=== PATIENT | female | born 1960 | race Caucasian/White ===

== ENCOUNTER 2023-04-26 11:30 | Outpatient (RCR) | payer MEDICARE, OTHER, SELFPAY ==
[2023-04-26 11:59] VITALS: BP 119/83
[2023-04-26 12:07] VITALS: BP 116/69
[2023-04-26 12:23] VITALS: BP 97/59
[2023-04-26 14:18] VITALS: BP 105/59
== END 2023-05-12 23:59 | disposition home or self-care (01) ==
LOC: OID 11:30
PROVIDERS: ATTENDING PHYSICIAN Nurse Practitioner Adult Health
DX: C50.411 Malignant neoplasm of upper-outer quadrant of right female breast (principal); Z17.0 Estrogen receptor positive status [ER+]
CPT/HCPCS: 36415; 36430; 86850; 86900; 86901; 86920; P9016

== ENCOUNTER 2023-06-07 11:16 | Outpatient (RCR) | payer MEDICARE, OTHER, SELFPAY ==
[2023-06-07] MEDS: TYLENOL 650 MG PO (11:33)
[2023-06-07 11:39] VITALS: BP 103/55
[2023-06-07 11:49] VITALS: BP 103/55
[2023-06-07 11:58] VITALS: BP 91/42
[2023-06-07 13:41] VITALS: BP 98/52
== END 2023-06-10 23:59 | disposition home or self-care (01) ==
LOC: OID 11:16
PROVIDERS: ATTENDING PHYSICIAN Nurse Practitioner Adult Health
DX: C50.411 Malignant neoplasm of upper-outer quadrant of right female breast (principal)
CPT/HCPCS: 36430; 86850; 86900; 86901; 86920; P9016

== ENCOUNTER → 2023-06-21 15:51 | Outpatient (REF) | payer MEDICARE, OTHER, SELFPAY ==
[2023-06-21 19:03] LABS: % Basophils 0.4 % (0-2); % Eosinophils 3.7 % (0-6); % Immature Granulocytes 0.9 % (0-0.5); % Lymphocytes 5.8 % (20.5-51.1); % Monocytes 1.7 % (1.7-9.3); % Neutrophils 87.5 % (42.2-75.2); Absolute Basophils 0.1 10^3/uL (0-0.2); Absolute Eosinophils 0.5 10^3/uL (0-0.7); Absolute Immature Granulocytes 0.1 10^3/uL (0-0.05); Absolute Lymphocytes 0.8 10^3/uL (1.2-3.4); Absolute Monocytes 0.2 10^3/uL (0.1-0.6); Absolute Neutrophils 12.2 10^3/uL (1.4-6.5); Hematocrit 30.1 % (37.0-47.0); Mean Corp Hgb Conc. 33.2 g/dL (33.0-37.0); Mean Corpuscular Hgb 31.7 pg (27.0-31.0); Mean Corpuscular Volume 95.6 fL (81.0-99.0); Mean Platelet Volume 10.2 fL (7.4-10.4); Nucleated Red Blood Cells % 0 %; Platelet Count 170 10^3/uL (130-400); Red Blood Cell Count 3.15 10^6/uL (4.20-5.40); Red Cell Dist. Width 17.3 % (11.5-14.5); White Blood Cell Count 13.9 10^3/uL (4.8-10.8)
== END ==
LOC: OIDL 15:51
PROVIDERS: ATTENDING PHYSICIAN Internal Medicine Hematology & Oncology
DX: C50.411 Malignant neoplasm of upper-outer quadrant of right female breast (principal); C79.51 Secondary malignant neoplasm of bone; D63.0 Anemia in neoplastic disease; I26.99 Other pulmonary embolism without acute cor pulmonale
CPT/HCPCS: 85025

== ENCOUNTER → 2023-06-25 13:18 | Outpatient (REF) | payer MEDICARE, OTHER, SELFPAY ==
[2023-06-25 09:14] LABS: INR 1.21; PT 15.1 Sec (11.4-14.6)
[2023-06-25 09:15] LABS: ALT (SGPT) 20 U/L (0-35); AST (SGOT) 30 U/L (14-36); Albumin 3.8 g/dl (3.5-5.0); Alkaline Phosphatase 141 U/L (38-126); Blood Urea Nitrogen 23 mg/dl (7-17); Calcium 10.6 mg/dl (8.4-10.2); Carbon Dioxide 26 mmol/L (22-30); Chloride 102 mmol/L (98-107); Glucose 109 mg/dl (70-99); Potassium 3.4 mmol/L (3.5-5.1); Sodium 137 mmol/L (135-145); Total Bilirubin 0.4 mg/dl (0.2-1.3); Total Protein 6.7 g/dl (6.3-8.2); eGFR > 60.00
== END ==
LOC: OIDL 13:18
PROVIDERS: ATTENDING PHYSICIAN Internal Medicine Hematology & Oncology
DX: C50.411 Malignant neoplasm of upper-outer quadrant of right female breast (principal)
CPT/HCPCS: 80053; 85610

== ENCOUNTER 2023-06-28 16:21 | Outpatient (RCR) | payer MEDICARE, OTHER, SELFPAY ==
[2023-06-28 15:56] LABS: % Basophils 1.1 % (0-2); % Eosinophils 3.2 % (0-6); % Immature Granulocytes 4.7 % (0-0.5); % Monocytes 1.4 % (1.7-9.3); % Neutrophils 71.6 % (42.2-75.2); Absolute Basophils 0.1 10^3/uL (0-0.2); Absolute Eosinophils 0.2 10^3/uL (0-0.7); Absolute Immature Granulocytes 0.3 10^3/uL (0-0.05); Absolute Monocytes 0.1 10^3/uL (0.1-0.6); Hematocrit 28.4 % (37.0-47.0); Hemoglobin 9.4 g/dL (12.0-16.0); Mean Corp Hgb Conc. 33.1 g/dL (33.0-37.0); Mean Corpuscular Hgb 31.8 pg (27.0-31.0); Mean Corpuscular Volume 95.9 fL (81.0-99.0); Mean Platelet Volume 10.4 fL (7.4-10.4); Nucleated Red Blood Cells % 0 %; Platelet Count 271 10^3/uL (130-400); Red Blood Cell Count 2.96 10^6/uL (4.20-5.40); Red Cell Dist. Width 17.2 % (11.5-14.5); White Blood Cell Count 5.6 10^3/uL (4.8-10.8)
== END 2023-07-11 23:59 | disposition home or self-care (01) ==
LOC: OID 16:21
PROVIDERS: ATTENDING PHYSICIAN Internal Medicine Hematology & Oncology
DX: C50.411 Malignant neoplasm of upper-outer quadrant of right female breast (principal)
CPT/HCPCS: 85025

== ENCOUNTER 2023-08-02 07:38 | Outpatient (RCR) | payer MEDICARE, OTHER, SELFPAY ==
[2023-07-16 10:28] LABS: Iron 100 ug/dl (37-170)
[2023-07-16 10:38] LABS: Percent Saturation 31 % (20-50); Total Iron Binding Capacity 316 ug/dl (265-497)
[2023-07-17 13:22] LABS: CA 27-29 96.2 U/mL (<=39.0)
[2023-07-23 09:39] LABS: % Basophils 1.3 % (0-2); % Eosinophils 2.7 % (0-6); % Immature Granulocytes 1.6 % (0-0.5); % Lymphocytes 19.2 % (20.5-51.1); % Monocytes 8.7 % (1.7-9.3); % Neutrophils 66.5 % (42.2-75.2); Absolute Basophils 0.1 10^3/uL (0-0.2); Absolute Eosinophils 0.1 10^3/uL (0-0.7); Absolute Immature Granulocytes 0.1 10^3/uL (0-0.05); Absolute Lymphocytes 0.9 10^3/uL (1.2-3.4); Absolute Monocytes 0.4 10^3/uL (0.1-0.6); Hematocrit 27.5 % (37.0-47.0); Hemoglobin 8.8 g/dL (12.0-16.0); Mean Corpuscular Volume 96.8 fL (81.0-99.0); Mean Platelet Volume 10.6 fL (7.4-10.4); Nucleated Red Blood Cells % 0 %; Platelet Count 196 10^3/uL (130-400); Red Blood Cell Count 2.84 10^6/uL (4.20-5.40); Red Cell Dist. Width 17.1 % (11.5-14.5); White Blood Cell Count 4.5 10^3/uL (4.8-10.8)
[2023-07-23 09:48] LABS: PT 39.9 Sec (11.4-14.6)
[2023-07-26 17:19] LABS: INR 1.42; PT 17.2 Sec (11.4-14.6)
[2023-08-02 07:50] VITALS: BP 108/45
[2023-08-02] MEDS: TYLENOL 650 MG PO (08:12)
[2023-08-02 08:31] VITALS: BP 108/45
[2023-08-02 08:48] VITALS: BP 104/53
[2023-08-02 10:46] VITALS: BP 105/47
[2023-08-02 11:47] LABS: INR 2.07; PT 23.1 Sec (11.4-14.6)
[2023-08-05 11:08] LABS: % Basophils 0.3 % (0-2); % Eosinophils 1.6 % (0-6); % Lymphocytes 7.7 % (20.5-51.1); % Neutrophils 77.4 % (42.2-75.2); Absolute Basophils 0.1 10^3/uL (0-0.2); Absolute Eosinophils 0.5 10^3/uL (0-0.7); Absolute Immature Granulocytes 1.7 10^3/uL (0-0.05); Absolute Lymphocytes 2.2 10^3/uL (1.2-3.4); Absolute Neutrophils 22.4 10^3/uL (1.4-6.5); Hemoglobin 10.3 g/dL (12.0-16.0); Mean Corp Hgb Conc. 32.2 g/dL (33.0-37.0); Mean Corpuscular Hgb 31.6 pg (27.0-31.0); Mean Corpuscular Volume 98.2 fL (81.0-99.0); Mean Platelet Volume 11.8 fL (7.4-10.4); Platelet Count 154 10^3/uL (130-400); Red Blood Cell Count 3.26 10^6/uL (4.20-5.40); Red Cell Dist. Width 19.6 % (11.5-14.5)
[2023-08-05 11:45] LABS: ALT (SGPT) 19 U/L (0-35); AST (SGOT) 33 U/L (14-36); Albumin 3.9 g/dl (3.5-5.0); Alkaline Phosphatase 228 U/L (38-126); Blood Urea Nitrogen 13 mg/dl (7-17); Calcium 10.3 mg/dl (8.4-10.2); Carbon Dioxide 27 mmol/L (22-30); Chloride 104 mmol/L (98-107); Glucose 88 mg/dl (70-99); Potassium 4.1 mmol/L (3.5-5.1); Sodium 135 mmol/L (135-145); Total Bilirubin 0.3 mg/dl (0.2-1.3); Total Protein 6.8 g/dl (6.3-8.2); eGFR > 60.00
[2023-08-06 14:39] LABS: CA 27-29 84.3 U/mL (<=39.0)
== END 2023-08-10 23:59 | disposition home or self-care (01) ==
LOC: OID 07:38
PROVIDERS: ATTENDING PHYSICIAN Internal Medicine Hematology & Oncology
DX: C50.411 Malignant neoplasm of upper-outer quadrant of right female breast (principal)
CPT/HCPCS: 36415; 36430; 80053; 82728; 83540; 83550; 85025; 85610; 86300; 86850; 86900; 86901; 86920; P9016

== ENCOUNTER → 2023-08-23 14:15 | Outpatient (REF) | payer MEDICARE, OTHER, SELFPAY ==
[2023-08-23 15:18] LABS: % Basophils 0.1 % (0-2); % Eosinophils 1.4 % (0-6); % Immature Granulocytes 9.1 % (0-0.5); % Lymphocytes 6.7 % (20.5-51.1); % Monocytes 9.4 % (1.7-9.3); % Neutrophils 73.3 % (42.2-75.2); Absolute Eosinophils 0.4 10^3/uL (0-0.7); Absolute Immature Granulocytes 2.8 10^3/uL (0-0.05); Absolute Lymphocytes 2.1 10^3/uL (1.2-3.4); Absolute Monocytes 2.9 10^3/uL (0.1-0.6); Absolute Neutrophils 22.7 10^3/uL (1.4-6.5); Hematocrit 24.9 % (37.0-47.0); Hemoglobin 8.1 g/dL (12.0-16.0); Mean Corp Hgb Conc. 32.5 g/dL (33.0-37.0); Mean Corpuscular Hgb 31.8 pg (27.0-31.0); Mean Corpuscular Volume 97.6 fL (81.0-99.0); Mean Platelet Volume 11.2 fL (7.4-10.4); Nucleated Red Blood Cells % 0.4 %; Platelet Count 189 10^3/uL (130-400); Red Blood Cell Count 2.55 10^6/uL (4.20-5.40); Red Cell Dist. Width 19.6 % (11.5-14.5)
[2023-08-23 15:50] LABS: INR 1.34; PT 16.4 Sec (11.4-14.6)
== END ==
LOC: OIDL 14:15
PROVIDERS: ATTENDING PHYSICIAN Internal Medicine Hematology & Oncology
DX: C50.411 Malignant neoplasm of upper-outer quadrant of right female breast (principal); C79.51 Secondary malignant neoplasm of bone; D50.9 Iron deficiency anemia, unspecified
CPT/HCPCS: 85025; 85610

== ENCOUNTER 2023-08-29 13:41 | Emergency (ER) | payer MEDICARE, OTHER, SELFPAY ==
--- NOTE | 2023-08-29 15:01 | ED.GENMED ---
History of Present Illness
General
Chief Complaint: Musculo-Skeletal Complaint
Source: patient
Exam Limitations: none
Time Seen by Provider: 08/29/23 14:54
Travel History
Have you had any contact with someone who has COVID-19?: No
Do you have any symptoms of coronavirus? Fever > 100 degrees, chills, cough, shortness of breath, sore throat, loss of taste or smell, muscle aches, or headache?: No
History of Present Illness
History of Present Illness:
See MDM
Past History
Past History
ED Past Medical History: Other (cancer)
ED Past Surgical History: Other (bone biopsy)
Social History
Tobacco: Non-smoker
Personal:
Employment: Employed
Phy Exam
Physical Exam
Physical Exam:
See MDM
Course
Orders/Labs/Results
Orders:
Orders
08/29/23 13:59
CR Clavicle - Left Complete Urgent
Comment:
Reason For Exam: pain
08/29/23 15:01
HYDROmorphone [Dilaudid] 1 mg IM NOW STA
Vital Signs
Initial and Last Documented VS:
Initial Vital Signs
Temp Pulse Resp Pulse Ox
97.9 F 98 16 97
08/29/23 13:54 08/29/23 13:54 08/29/23 13:54 08/29/23 13:54
Last Documented Vital Signs
Temp Pulse Resp Pulse Ox
97.9 F 98 16 97
08/29/23 13:54 08/29/23 13:54 08/29/23 13:54 08/29/23 13:54
MDM/Problems Addressed
Differential Diagnosis Includes:
HPI and MDM Narrative:
63-year-old female presenting with left clavicle pain. Patient felt a pop yesterday while she was doing the laundry. She does have a history of metastatic breast cancer to the bone. She has been taking Vicodin with minimal relief
X-ray consistent with mid clavicle fracture. Given the history and the x-ray findings, we discussed pathologic fracture. Will place in sling and give dose of Dilaudid
Physical exam
General: Well appearing and non-toxic
HEENT: protecting airway
Neck: appears supple
CV: No evidence of cyanosis
Resp: No accessory muscle use
Abd: Non-distended
Extremities: Tenderness and swelling to left mid clavicle. Distal extremity neurovascular intact
Neuro: alert
Psych: Normal affect
Skin: Intact
Problems Addressed including Acute and Chronic Conditions affecting care:
1. Clavicle fracture
Acuity: acute
Prognosis: stable
Details: Will give dose of IM Dilaudid and placed in sling
Updates
After IM Dilaudid, patient feeling better.
Differential Diagnosis (but not limited to): Shoulder strain, clavicle fracture, pneumothorax
Testing considered: Chest x-ray
Drug therapy (if applicable): OTC meds, please see d/c instruction regarding Rx drugs
Amount and/or Complexity of Data Reviewed
Clinical info obtained from: Patient
External data reviewed: N/A
Labs I independently reviewed (but not limited to): N/A
Radiology: x-ray independently reviewed: Left clavicle fracture
Pulse Ox: not hypoxic
EKG independently reviewed: N/A
Rouge Presser: N/A
Critical Care: N/A
Risk of Complication:
Social Determinants of health: Good social support
Discussed with other providers: N/A
Escalation of Care includes Admit/Obs: After being observed in the Emergency Department, pt stable for discharge.
Occasional wrong word or 'sound a like' substitutions may have occurred due to the inherent limitations of voice recognition software. Read the chart carefully and recognize, using context, where substitutions have occurred.
*Critical Care Note
Total Time (30-74mins, 75-104mins- exclusive of procedures): Not Applicable
ED Attending Note
-
Portions of this chart may have been created with voice recognition software.� Occasional wrong word or��sound alike� substitutions may have occurred due to the inherent limitations of voice recognition software.
Discharge Plan
Departure
Patient Disposition: Home (Routine Discharge)
Date of Disposition: 08/29/23
Time of Disposition: 16:12
Patient with high blood pressure during this ER visit?: No
Discharge Problem:
Fracture, clavicle closed, shaft
Instructions: Clavicle fracture
Prescriptions:
New
oxycodone 10 mg tablet
10 mg PO Q8H PRN (Reason: Pain) Qty: 14 0RF
No Action
albuterol sulfate 1 PUFF HFA aerosol inhaler
1 puff inhalation R Q4HPRN PRN (Reason: wheeze)
acetaminophen 500 mg Tablet
500 mg PO Q6H PRN (Reason: pain)
ondansetron HCl [Zofran] 8 mg Tablet
8 mg PO Q8H PRN (Reason: nausea)
diphenoxylate-atropine [Lomotil] 2.5-0.025 mg Tablet
1 tab PO DAILY PRN (Reason: diarrhea)
prochlorperazine maleate [Compazine] 10 mg Tablet
10 mg PO Q6H PRN (Reason: nausea)
Coumadin
5 mg PO DAILY
Rx Instructions:
dose varies
Referrals:
Rossy Gamble PA [Family Provider] -
Activity Restrictions/Additional Instructions:
Please return for any worsening symptoms.
You may return at any time if you have further concerns.
Please follow up with your doctor at the first available appointment, preferably this week.
Please make an appointment with the orthopedist.
Thank you for choosing [facility].
Interventions
Interventions:
*Risk Screen - Suicide Last Done: 08/29/23 13:54
*General Assessment Last Done: 08/29/23 13:54
*Neglect/Abuse Screening Last Done: 08/29/23 13:54
ED- Fall Risk Assessment Last Done: 08/29/23 15:17
*ED COVID-19 Vaccine History Last Done: 08/29/23 15:17
ED-Musculoskeletal Assessment Last Done: 08/29/23 15:17
Discharge Date and Time
Print Language: ALBANIAN
[2023-08-29] MEDS: DILAUDID 1 MG IM (15:16)
[2023-08-29 16:14] VITALS: BP 118/74
== END 2023-08-29 16:15 | disposition home or self-care (01) ==
LOC: EMR 13:41
PROVIDERS: EMERGENCY PHYSICIAN Student in an Organized Health Care Education/Training Program; FAMILY PHYSICIAN Family Medicine
DX: S42.022A Displaced fracture of shaft of left clavicle, initial encounter for closed fracture (principal); X58.XXXA Exposure to other specified factors, initial encounter
CPT/HCPCS: 99283; 96372; 73000

== ENCOUNTER 2023-09-24 10:57 | Emergency (ER) | payer MEDICARE, OTHER, SELFPAY ==
[2023-09-24 11:02] VITALS: BP 132/72
--- NOTE | 2023-09-24 14:33 | ED.GENMED ---
History of Present Illness
General
Chief Complaint: Back Pain
Source: patient and family
Exam Limitations: none
Time Seen by Provider: 09/24/23 12:24
Nursing documentation reviewed up to this point in time: agreed with
Travel History
Have you had any contact with someone who has COVID-19?: No
Do you have any symptoms of coronavirus? Fever > 100 degrees, chills, cough, shortness of breath, sore throat, loss of taste or smell, muscle aches, or headache?: No
History of Present Illness
History of Present Illness:
63-year-old female with past medical history of asthma previous PE presenting to the emergency department today with concerns of hip and low back discomfort over the past week. Denies additional symptoms associated with does have history of bone
lesions from bone cancer. She is concerned that could be a pathologic fracture but otherwise has been able to ambulate.
Past History
Past History
ED Past Medical History: Other (cancer)
ED Past Surgical History: Other (bone biopsy)
Social History
Tobacco: Non-smoker
Personal:
Employment: Employed
Review of Systems
Review of Systems
Allergies reviewed?: Yes
All Other Systems: ROS reviewed and negative except as documented in HPI and ROS
Phy Exam
Physical Exam
Physical Exam:
GENERAL: Alert , in no apparent distress
EYE: pupils equal and reactive
NECK: Supple, no significant adenopathy.
ENT: o/p clr, mmm.
CARDIAC: Regular rate and rhythm .
LUNGS: Clear breath sounds bilaterally, no acute respiratory distress, no wheezes/rales/rhonchi
ABDOMEN: Soft, without focal tenderness, no r/g, no cvat
NEUROLOGICAL: Alert and oriented, no focal neuro deficits
SKIN: Warm and dry, skin intact.
MUSCULOSKELETAL: No edema, well perfused. No specific bony tenderness good range of motion and strength of the hip and knees bilaterally
PSYCH: Normal and appropriate interaction.
Course
Orders/Labs/Results
Orders:
Orders
09/24/23 12:20
CR Hip - LT w/wo Pel 2-3 Vw* Urgent
Comment:
Reason For Exam: pain
Include a pelvis x-ray?: Yes
CR Lumbar Spine 2 Or 3 Views Urgent
Comment:
Reason For Exam: pain
Vital Signs
Initial and Last Documented VS:
Initial Vital Signs
Temp Pulse Resp BP Pulse Ox
98.2 F 92 18 132/72 96
09/24/23 11:02 09/24/23 11:02 09/24/23 11:02 09/24/23 11:02 09/24/23 11:02
Last Documented Vital Signs
Temp Pulse Resp BP Pulse Ox
98.2 F 92 18 132/72 96
09/24/23 11:02 09/24/23 11:02 09/24/23 11:02 09/24/23 11:02 09/24/23 11:02
MDM/Problems Addressed
MDM/Problems Addressed:
63-year-old female presenting to the emergency department today with concerns of hip and low back pain over the past few days. Does have a history of bone cancer. Here x-ray performed without signs of pathologic fracture. Patient does have
significant bone lesions that are chronic. She is able to ambulate making occult fracture unlikely stable for outpatient management. Return precautions given.
*Critical Care Note
Total Time (30-74mins, 75-104mins- exclusive of procedures): Not Applicable
ED Attending Note
-
Portions of this chart may have been created with voice recognition software.� Occasional wrong word or��sound alike� substitutions may have occurred due to the inherent limitations of voice recognition software.
Discharge Plan
Departure
Patient Disposition: Home (Routine Discharge)
Date of Disposition: 09/24/23
Time of Disposition: 14:34
Patient with high blood pressure during this ER visit?: No
Condition: Good
Covid-19: Not Applicable
Discharge Problem:
Bone pain
Instructions: Low Back Pain (DC)
Prescriptions:
No Action
albuterol sulfate 1 PUFF HFA aerosol inhaler
1 puff inhalation R Q4HPRN PRN (Reason: wheeze)
acetaminophen 500 mg Tablet
500 mg PO Q6H PRN (Reason: pain)
ondansetron HCl [Zofran] 8 mg Tablet
8 mg PO Q8H PRN (Reason: nausea)
diphenoxylate-atropine [Lomotil] 2.5-0.025 mg Tablet
1 tab PO DAILY PRN (Reason: diarrhea)
prochlorperazine maleate [Compazine] 10 mg Tablet
10 mg PO Q6H PRN (Reason: nausea)
Coumadin
5 mg PO DAILY
Rx Instructions:
dose varies
oxycodone 10 mg tablet
10 mg PO Q8H PRN (Reason: Pain) Qty: 14 0RF
Referrals:
Rossy Gamble PA [Family Provider] -
Activity Restrictions/Additional Instructions:
You came to the emergency department today with concerns of hip and back pain. Here you had x-rays without emergent findings or fracture. Please help closely with your outpatient doctors. Return to the emergency department for any worsening, new
or concerning symptoms.
Interventions
Interventions:
ED- Fall Risk Assessment Last Done: 09/24/23 12:24
*ED COVID-19 Vaccine History Last Done: 09/24/23 11:02
ED-Musculoskeletal Assessment Last Done: 09/24/23 12:23
Discharge Date and Time
Print Language: LITHU[place]IAN
== END 2023-09-24 14:46 | disposition home or self-care (01) ==
LOC: EMR 10:57
PROVIDERS: EMERGENCY PHYSICIAN Emergency Medicine; FAMILY PHYSICIAN Family Medicine
DX: M89.8X9 Other specified disorders of bone, unspecified site (principal); Z86.711 Personal history of pulmonary embolism; J45.909 Unspecified asthma, uncomplicated
CPT/HCPCS: 99283; 72100; 73502

== ENCOUNTER 2023-10-01 08:27 | Outpatient (RCR) | payer MEDICARE, OTHER, SELFPAY ==
[2023-09-16 09:09] LABS: % Basophils 0.4 % (0-2); % Eosinophils 2.6 % (0-6); % Immature Granulocytes 0.2 % (0-0.5); % Monocytes 7.3 % (1.7-9.3); % Neutrophils 77.5 % (42.2-75.2); Absolute Basophils 0.1 10^3/uL (0-0.2); Absolute Eosinophils 0.3 10^3/uL (0-0.7); Absolute Lymphocytes 1.5 10^3/uL (1.2-3.4); Absolute Monocytes 0.9 10^3/uL (0.1-0.6); Absolute Neutrophils 9.7 10^3/uL (1.4-6.5); Hematocrit 27.3 % (37.0-47.0); Hemoglobin 8.8 g/dL (12.0-16.0); Mean Corp Hgb Conc. 32.2 g/dL (33.0-37.0); Mean Corpuscular Volume 96.1 fL (81.0-99.0); Mean Platelet Volume 9.4 fL (7.4-10.4); Platelet Count 268 10^3/uL (130-400); Red Blood Cell Count 2.84 10^6/uL (4.20-5.40); Red Cell Dist. Width 17.7 % (11.5-14.5); White Blood Cell Count 12.5 10^3/uL (4.8-10.8)
[2023-09-16 10:10] LABS: INR 1.78; PT 20.8 Sec (11.4-14.6)
[2023-09-16 10:12] LABS: ALT (SGPT) 19 U/L (0-35); AST (SGOT) 42 U/L (14-36); Albumin 3.8 g/dl (3.5-5.0); Alkaline Phosphatase 166 U/L (38-126); Blood Urea Nitrogen 23 mg/dl (7-17); Calcium 11.4 mg/dl (8.4-10.2); Carbon Dioxide 26 mmol/L (22-30); Chloride 105 mmol/L (98-107); Glucose 84 mg/dl (70-99); Potassium 3.5 mmol/L (3.5-5.1); Sodium 140 mmol/L (135-145); Total Bilirubin 0.4 mg/dl (0.2-1.3); Total Protein 6.7 g/dl (6.3-8.2); eGFR > 60.00
[2023-10-01] VITALS (7 sets, daily range): BP systolic 93–110; BP diastolic 51–60
[2023-10-01 10:01] LABS: Iron 26 ug/dl (37-170)
[2023-10-01 10:10] LABS: Percent Saturation 12 % (20-50); Total Iron Binding Capacity 211 ug/dl (265-497)
[2023-10-07 14:11] LABS: % Basophils 0.5 % (0-2); % Eosinophils 4.5 % (0-6); % Immature Granulocytes 0.2 % (0-0.5); % Lymphocytes 25.2 % (20.5-51.1); % Monocytes 9.4 % (1.7-9.3); % Neutrophils 60.2 % (42.2-75.2); Absolute Eosinophils 0.3 10^3/uL (0-0.7); Absolute Lymphocytes 1.5 10^3/uL (1.2-3.4); Absolute Monocytes 0.6 10^3/uL (0.1-0.6); Absolute Neutrophils 3.5 10^3/uL (1.4-6.5); Hematocrit 29.2 % (37.0-47.0); Hemoglobin 9.2 g/dL (12.0-16.0); Mean Corp Hgb Conc. 31.5 g/dL (33.0-37.0); Mean Corpuscular Volume 92.1 fL (81.0-99.0); Mean Platelet Volume 9.5 fL (7.4-10.4); Platelet Count 392 10^3/uL (130-400); Red Blood Cell Count 3.17 10^6/uL (4.20-5.40); Red Cell Dist. Width 16.7 % (11.5-14.5); White Blood Cell Count 5.8 10^3/uL (4.8-10.8)
[2023-10-07 15:18] LABS: ALT (SGPT) 23 U/L (0-35); AST (SGOT) 33 U/L (14-36); Albumin 3.3 g/dl (3.5-5.0); Alkaline Phosphatase 184 U/L (38-126); Blood Urea Nitrogen 15 mg/dl (7-17); Calcium 10.4 mg/dl (8.4-10.2); Carbon Dioxide 24 mmol/L (22-30); Chloride 106 mmol/L (98-107); Glucose 98 mg/dl (70-99); Potassium 3.6 mmol/L (3.5-5.1); Sodium 139 mmol/L (135-145); Total Bilirubin 0.2 mg/dl (0.2-1.3); Total Protein 6.1 g/dl (6.3-8.2); eGFR > 60.00
== END 2023-10-10 23:59 | disposition home or self-care (01) ==
LOC: OID 08:27
PROVIDERS: ATTENDING PHYSICIAN Internal Medicine Hematology & Oncology
DX: C50.411 Malignant neoplasm of upper-outer quadrant of right female breast (principal); D63.0 Anemia in neoplastic disease; Z17.0 Estrogen receptor positive status [ER+]
CPT/HCPCS: 36415; 36430; 80053; 82728; 83540; 83550; 85025; 85610; 86850; 86900; 86901; 86920; P9016

== ENCOUNTER → 2023-10-18 08:21 | Outpatient (REF) | payer MEDICARE, OTHER, SELFPAY | LOC: RCS 08:21 | PROVIDERS: ATTENDING PHYSICIAN Physician Assistant; FAMILY PHYSICIAN Family Medicine | DX: R06.09 Other forms of dyspnea (principal); I34.0 Nonrheumatic mitral (valve) insufficiency; Z95.818 Presence of other cardiac implants and grafts | CPT/HCPCS: 93306; 93356 ==

== ENCOUNTER 2023-11-12 16:04 | Outpatient (RCR) | payer MEDICARE, OTHER, SELFPAY ==
[2023-11-12 11:45] LABS: INR 2.87
== END 2023-12-11 23:59 | disposition home or self-care (01) ==
LOC: OID 16:04
PROVIDERS: ATTENDING PHYSICIAN Internal Medicine Hematology & Oncology
DX: C50.411 Malignant neoplasm of upper-outer quadrant of right female breast (principal); D63.0 Anemia in neoplastic disease; Z17.0 Estrogen receptor positive status [ER+]
CPT/HCPCS: 85610

== ENCOUNTER → 2023-11-26 09:12 | Outpatient (REF) | payer MEDICARE, OTHER, SELFPAY ==
[2023-11-26 10:30] LABS: INR 4.09; PT 39.7 Sec (11.4-14.6)
== END ==
LOC: REG 09:12
PROVIDERS: ATTENDING PHYSICIAN Internal Medicine Hematology & Oncology; FAMILY PHYSICIAN Family Medicine
DX: C50.411 Malignant neoplasm of upper-outer quadrant of right female breast (principal); C79.51 Secondary malignant neoplasm of bone; D50.9 Iron deficiency anemia, unspecified; D63.0 Anemia in neoplastic disease; I26.99 Other pulmonary embolism without acute cor pulmonale; E87.6 Hypokalemia; M54.50 Low back pain, unspecified; S42.025 Nondisplaced fracture of shaft of left clavicle; M84.412S Pathological fracture, left shoulder, sequela; E83.52 Hypercalcemia
CPT/HCPCS: 36415; 85610

== ENCOUNTER → 2023-12-10 13:14 | Outpatient (REF) | payer MEDICARE, OTHER, SELFPAY ==
[2023-12-10 13:50] LABS: INR 2.32; PT 25.3 Sec (11.4-14.6)
== END ==
LOC: OIDL 13:14
PROVIDERS: ATTENDING PHYSICIAN Internal Medicine Hematology & Oncology
DX: C50.411 Malignant neoplasm of upper-outer quadrant of right female breast (principal); C79.51 Secondary malignant neoplasm of bone; D50.9 Iron deficiency anemia, unspecified; D63.0 Anemia in neoplastic disease
CPT/HCPCS: 85610

== ENCOUNTER → 2023-12-17 15:56 | Outpatient (REF) | payer MEDICARE, OTHER, SELFPAY ==
[2023-12-17 09:35] LABS: % Eosinophils 13.5 % (0-6); % Immature Granulocytes 0.8 % (0-0.5); % Lymphocytes 17.9 % (20.5-51.1); % Monocytes 7.9 % (1.7-9.3); % Neutrophils 57.9 % (42.2-75.2); Absolute Basophils 0.1 10^3/uL (0-0.2); Absolute Eosinophils 0.3 10^3/uL (0-0.7); Absolute Lymphocytes 0.5 10^3/uL (1.2-3.4); Absolute Monocytes 0.2 10^3/uL (0.1-0.6); Absolute Neutrophils 1.5 10^3/uL (1.4-6.5); Hematocrit 30.7 % (37.0-47.0); Hemoglobin 10.2 g/dL (12.0-16.0); Mean Corp Hgb Conc. 33.2 g/dL (33.0-37.0); Mean Corpuscular Hgb 30.2 pg (27.0-31.0); Mean Corpuscular Volume 90.8 fL (81.0-99.0); Mean Platelet Volume 10.4 fL (7.4-10.4); Nucleated Red Blood Cells % 0 %; Platelet Count 224 10^3/uL (130-400); Red Blood Cell Count 3.38 10^6/uL (4.20-5.40); Red Cell Dist. Width 18.1 % (11.5-14.5); White Blood Cell Count 2.5 10^3/uL (4.8-10.8)
[2023-12-17 09:46] LABS: PT 26.9 Sec (11.4-14.6)
== END ==
LOC: OIDL 15:56
PROVIDERS: ATTENDING PHYSICIAN Internal Medicine Hematology & Oncology
DX: C50.411 Malignant neoplasm of upper-outer quadrant of right female breast (principal); M85.80 Other specified disorders of bone density and structure, unspecified site; K64.8 Other hemorrhoids
CPT/HCPCS: 85025; 85610

== ENCOUNTER → 2024-01-07 11:05 | Outpatient (REF) | payer MEDICARE, OTHER, SELFPAY ==
[2024-01-07 12:36] LABS: INR 1.17; PT 14.8 Sec (11.4-14.6)
[2024-01-07 12:40] LABS: ALT (SGPT) 21 U/L (0-35); AST (SGOT) 35 U/L (14-36); Albumin 3.6 g/dl (3.5-5.0); Alkaline Phosphatase 114 U/L (38-126); Blood Urea Nitrogen 17 mg/dl (7-17); Calcium 9.6 mg/dl (8.4-10.2); Carbon Dioxide 20 mmol/L (22-30); Chloride 106 mmol/L (98-107); Glucose 138 mg/dl (70-99); Potassium 3.7 mmol/L (3.5-5.1); Sodium 139 mmol/L (135-145); Total Bilirubin 0.3 mg/dl (0.2-1.3); eGFR > 60.00
== END ==
LOC: OIDL 11:05
PROVIDERS: ATTENDING PHYSICIAN Internal Medicine Hematology & Oncology
DX: C50.411 Malignant neoplasm of upper-outer quadrant of right female breast (principal); D50.9 Iron deficiency anemia, unspecified
CPT/HCPCS: 80053; 85610

== ENCOUNTER → 2024-02-25 14:50 | Outpatient (REF) | payer MEDICARE, OTHER, SELFPAY ==
[2024-02-25 15:43] LABS: INR 3.08; PT 31.6 Sec (11.4-14.6)
== END ==
LOC: REG 14:50
PROVIDERS: ATTENDING PHYSICIAN Internal Medicine Hematology & Oncology; FAMILY PHYSICIAN Family Medicine
DX: C50.411 Malignant neoplasm of upper-outer quadrant of right female breast (principal); C79.51 Secondary malignant neoplasm of bone; D50.9 Iron deficiency anemia, unspecified; D63.0 Anemia in neoplastic disease; I26.99 Other pulmonary embolism without acute cor pulmonale; E87.6 Hypokalemia; M54.50 Low back pain, unspecified; S42.025 Nondisplaced fracture of shaft of left clavicle; M84.412S Pathological fracture, left shoulder, sequela; E83.52 Hypercalcemia
CPT/HCPCS: 36415; 85610

== ENCOUNTER 2024-03-11 05:04 | Inpatient (IN) | payer MEDICARE, OTHER, SELFPAY ==
[2024-03-10 22:50] VITALS: BP 124/76
[2024-03-10 23:26] VITALS: BP 120/59
[2024-03-10 23:32] VITALS: BMI 22.0
[2024-03-11] VITALS: BP 123/70
--- NOTE | 2024-03-11 00:21 | ED.GENMED ---
History of Present Illness
General
Chief Complaint: Headache
Source: patient
Time Seen by Provider: 03/10/24 23:30
History of Present Illness
History of Present Illness:
63-year-old female with unfortunate history of metastatic breast cancer to the bone who presents with pain in her neck on the right side up into the base of her skull. She states start about 8:30 PM. She states it hurts to. She denies any trauma.
She did have chemo earlier tonight. Patient states that she has had pathologic fractures elsewhere in the past. No fall
Past History
Past History
ED Past Medical History: Asthma and Other (Breast cancer with metastasis to bone marrow, PE)
ED Past Surgical History: Other (bone biopsy)
Social History
Tobacco: Non-smoker
Personal:
Employment: Employed
Phy Exam
Physical Exam
Physical Exam:
CONSTITUTIONAL Vital signs reviewed, Patient alert and oriented to person, place and time. Well-appearing
HEAD atraumatic, normocephalic.
EYES eyelids normal to inspection, Extraocular muscles intact, Conjunctiva normal, Sclera normal.
NECK Trachea midline, no jugular venous distention. Limited range of motion due to pain. Moderate tenderness along the right paraspinal region of the mid cervical spine. Some tenderness to the base of the occiput mild tenderness to the right
trapezius.
RESP no respiratory distress
BACK No obvious deformities
UPPER EXTREMITY Gross Range of motion normal, gross motor strength normal
LOWER EXTREMITY Gross range of motion normal, Gross motor strength normal
NEURO Speech normal, No focal motor deficits include, [place] coma scale 15, Memory normal, Cranial Nerves intact to screening exam.
SKIN Skin warm, dry, and normal in color.
PSYCHIATRIC Patient oriented to person place and time, Normal affect.
Course
Orders/Labs/Results
Orders:
Orders
03/10/24 23:36
Morphine Sulfate 4 mg IV NOW STA
03/11/24 00:02
CT Cervical Spine W/o Iv Contr Urgent
Reason For Exam: neck pain, metastatic breast ca
CT Head W/o Iv Contrast Urgent
Reason For Exam: [place], neck pain, metastatic breast Ca
03/11/24 02:21
Complete Blood Count/With Diff Urgent
Comprehensive Metabolic Panel Urgent
03/11/24 02:28
HYDROmorphone [Dilaudid] 1 mg IV NOW STA
03/11/24 02:30
Heparin Pf [Heparin Lock Flush] 500 unit .ROUTE .STK-MED ONE
Vital Signs
Initial and Last Documented VS:
Initial Vital Signs
Temp Pulse Resp BP Pulse Ox
98.6 F 88 20 124/76 100
03/10/24 22:50 03/10/24 22:50 03/10/24 22:50 03/10/24 22:50 03/10/24 22:50
Last Documented Vital Signs
Temp Pulse Resp BP Pulse Ox
98.6 F 81 18 135/77 100
03/10/24 22:50 03/10/24 23:48 03/11/24 00:00 03/11/24 01:01 03/11/24 01:15
MDM/Problems Addressed
Differential Diagnosis Includes:
Metastatic disease, osteoarthritis, cervical muscle strain
MDM/Problems Addressed:
Neck pain, headache, metastatic breast cancer
*Radiology
Radiology exam reviewed: preliminary read by ED provider (Lytic lesion noted to C2 and base of skull)
*Pulse Oximetry
Patient hypoxic: no
*Critical Care Note
Total Time (30-74mins, 75-104mins- exclusive of procedures): Not Applicable
Data Reviewed
Source: patient and family (Patient's son)
Patient Management
Discussion with other providers: Machine Stacker (Case discussed with Dr. Lackey from oncology)
Escalation/DeEscalation of care consider admission/obs:
Patient with unfortunate metastatic breast cancer with lesions at C2 and the base of the skull. C-collar placed for support and protection. Case discussed with oncology recommends admit for pain control and MRI. Likely at some point to need
radiation. No neurologic symptom
ED Attending Note
-
Portions of this chart may have been created with voice recognition software.� Occasional wrong word or��sound alike� substitutions may have occurred due to the inherent limitations of voice recognition software.
Discharge Plan
Departure
Patient Disposition: Admit
Date of Disposition: 03/11/24
Time of Disposition: 02:30
Admit to: Med/Surg
Presentation/result/management discussed w/ accepting MD/DO: Hospitalist
Discharge Problem:
Metastatic breast cancer, Metastasis to cervical spine
Prescriptions:
No Action
albuterol sulfate 1 PUFF HFA aerosol inhaler
1 puff inhalation R Q4HPRN PRN (Reason: wheeze)
ondansetron HCl [Zofran] 8 mg Tablet
8 mg PO Q8H PRN (Reason: nausea)
diphenoxylate-atropine [Lomotil] 2.5-0.025 mg Tablet
1 tab PO DAILY PRN (Reason: diarrhea)
prochlorperazine maleate [Compazine] 10 mg Tablet
10 mg PO Q6H PRN (Reason: nausea)
Coumadin
5 mg PO DAILY
Rx Instructions:
dose varies
gabapentin 100 mg Capsule
300 mg PO HS
oxycodone-acetaminophen
325 PO DAILY PRN (Reason: pain)
Referrals:
Rossy Gamble PA [Family Provider] -
Interventions
Interventions:
*Risk Screen - Suicide Last Done: 03/10/24 22:50
*General Assessment Last Done: 03/10/24 22:50
*Neglect/Abuse Screening Last Done: 03/10/24 22:50
ED- Fall Risk Assessment Last Done: 03/10/24 22:50
*ED COVID-19 Vaccine History Last Done: 03/10/24 22:50
ED-Musculoskeletal Assessment Last Done: 03/10/24 23:35
ED- Neurological Assessment Last Done: 03/10/24 23:35
Discharge Date and Time
Print Language: [place]
[2024-03-11] MEDS: MORPHINE SULFATE 4 MG IV (00:54)
[2024-03-11 01:01] VITALS: BP 135/77
[2024-03-11] MEDS: DILAUDID 1 MG IV (02:32)
[2024-03-11 02:56] LABS: % Basophils 0.2 % (0-2); % Immature Granulocytes 0.4 % (0-0.5); % Lymphocytes 15.7 % (20.5-51.1); % Monocytes 1.3 % (1.7-9.3); % Neutrophils 82.4 % (42.2-75.2); Absolute Lymphocytes 0.7 10^3/uL (1.2-3.4); Absolute Monocytes 0.1 10^3/uL (0.1-0.6); Absolute Neutrophils 3.8 10^3/uL (1.4-6.5); Hemoglobin 8.1 g/dL (12.0-16.0); Mean Corp Hgb Conc. 32.4 g/dL (33.0-37.0); Mean Corpuscular Hgb 28.7 pg (27.0-31.0); Mean Corpuscular Volume 88.7 fL (81.0-99.0); Mean Platelet Volume 10.1 fL (7.4-10.4); Nucleated Red Blood Cells % 0 %; Platelet Count 320 10^3/uL (130-400); Red Blood Cell Count 2.82 10^6/uL (4.20-5.40); Red Cell Dist. Width 16.1 % (11.5-14.5); White Blood Cell Count 4.6 10^3/uL (4.8-10.8)
[2024-03-11 03:53] LABS: ALT (SGPT) 19 U/L (0-35); AST (SGOT) 44 U/L (14-36); Albumin 3.6 g/dl (3.5-5.0); Alkaline Phosphatase 135 U/L (38-126); Blood Urea Nitrogen 17 mg/dl (7-17); Calcium 9.2 mg/dl (8.4-10.2); Carbon Dioxide 24 mmol/L (22-30); Chloride 105 mmol/L (98-107); Estimated Creatinine Clearance 81 ml/min; Glucose 115 mg/dl (70-99); Potassium 3.9 mmol/L (3.5-5.1); Sodium 139 mmol/L (135-145); Total Bilirubin 0.5 mg/dl (0.2-1.3); Total Protein 6.3 g/dl (6.3-8.2); eGFR > 60.00
--- NOTE | 2024-03-11 04:52 | HPS.HSE ---
Family Physician
-
Family Physician: Rossy Gamble
Chief Complaint
-
Headache
History of Present Illness
Patient is a 63y F with PMH significant for breast cancer with metastases to bone who presents to ED complaining of posterior headache and neck pain for about one week. Patient is currently on chemotherapy regimen for breast cancer with known
diffuse bony mets. She had her usual chemo session earlier today. Patient states that she developed new pain rather suddenly about one week ago in the upper neck / posterior skull. Patient states that symptoms have been persistent since that
time. This evening she presented to the ED for further evaluation.
Patient states that the pain radiates toward her R ear. No pain in the arms. No weakness or ataxia.
Medical History
Past Medical History
Past Medical History: Reports Other
Additional Past Medical History:
Breast Cancer with Bony Metastases
Anemia of Chronic Disease
Mitral Valve Disease
History of Pulmonary Embolism
Pathologic Left Clavicle Fracture
Past Surgical History: Reports Other
Additional Past Surgical History:
Right Lumpectomy
R ACW Port Placement
MitraClip Placement x 2
D&C
T&A
Social History
Tobacco: Non-smoker
Alcohol: None
Drug: None
Personal:
Family History
Family History: Not pertinent
Allergies / Home Medications
Allergies reflects when Allergies were last updated in [employer].
Home Medications with original date entered in [employer]
Allergy/Medication List:
Allergies
Allergy/AdvReac Type Severity Reaction Status Date / Time
No Known Allergies Allergy Verified 03/10/24 22:50
Home Medications
albuterol sulfate 90 mcg/actuation aerosol inhaler 1 puff inhalation R Q4HPRN PRN wheeze 10/26/18
diphenoxylate-atropine 2.5 mg-0.025 mg tablet (Lomotil) 1 tab PO DAILY PRN diarrhea 03/16/23
ondansetron HCl 8 mg tablet 8 mg PO Q8H PRN nausea 03/16/23
prochlorperazine maleate 10 mg tablet (Compazine) 10 mg PO Q6H PRN nausea 03/16/23
Coumadin 5 mg PO DAILY 06/07/23
gabapentin 100 mg capsule 300 mg PO HS 03/11/24
oxycodone-acetaminophen 325 PO DAILY PRN pain 03/11/24
Review of Systems
-
History Source: Patient
A 12 point ROS was completed and negative except as noted: Yes
Constitutional: Denies Fever or Chills
EENT: Denies Sore Throat
Respiratory: Denies Cough or Trouble Breathing
Cardiac: Denies Chest Pain or Palpitations
Abdomen/GI: Denies Abdominal Pain, Nausea, Vomiting or Diarrhea
: Denies Dysuria or Frequency
Musculoskeletal: Reports Joint Pain and Other (Neck pain / headache)
Neurological: Reports Headache; Denies Dizzy
Psych: Denies Depression or Anxiety
Physical Exam
Vital Signs
Vital Signs
Temp Pulse Resp BP Pulse Ox
98.6 F 81 18 135/77 98
03/10/24 22:50 03/10/24 23:48 03/11/24 04:00 03/11/24 01:01 03/11/24 04:00
Physical Exam
General: Other (63y F in mild distress due to discomfort.)
HEENT: Moist mucous membranes, PERRLA and Other (Cervical collar in place.)
Respiratory: Clear; No Wheezes, Rales or Rhonchi
Cardiac: S1/S2 and Regular Rhythm; No Murmur
GI: Soft, Non Tender, Non Distended and Normal Bowel Sounds
Musculoskeletal: No Clubbing, No Cyanosis and No Edema
Neuro: AO x 3
Laboratory Results
-
03/11/24 02:32
03/11/24 02:32
Laboratory Results
Total Bilirubin 0.5 mg/dl (0.2-1.3) 03/11/24 02:32
AST 44 U/L (14-36) H 03/11/24 02:32
ALT 19 U/L (0-35) 03/11/24 02:32
Alkaline Phosphatase 135 U/L (38-126) H 03/11/24 02:32
Impression/Plan
-
A/P: Patient is a 63y F with PMH significant for breast cancer with mets to bone who presents to ED complaining of one week of new posterior headache and neck pain.
Symptomatic Cervical / Occipital Lytic Lesions
- Admit for further evaluation and treatment.
- CT done in the ED with multiple cervical / skull base bony lesions - the most prominent of which are R occipital condyle and R C2 body.
- Prior PET-CT scans have demonstrated wide-spread bony metastases - including throughout the spine.
- Clearly these are at the least newly symptomatic lesions.
- Collar placed in the ED.
- Supportive care / pain control / etc.
- Oncology evaluation for additional recommendations.
- Would likely benefit from RadOnc eval.
Anemia of Chronic Disease
- Hgb near known baseline.
- No noted acute blood loss.
- Follow H&H for any changes.
History of PE
DVT Prophylaxis
- Continue Coumadin.
- Follow INR daily and adjust dose as needed.
Code Status: Full
[2024-03-11 05:06] VITALS: BP 117/70
[2024-03-11] MEDS: MORPHINE SULFATE 2 MG IV ×2 (07:37→11:11)
--- NOTE | 2024-03-11 07:57 | CON.ONC ---
Documented by User: ELVIRA Kowalski 03/11/24 08:18
Impression
Impression
metastatic breast cancer on palliative Taxol
suspect presenting symptoms are related to bone mets, xgeva has been on hold for dental issues
Chronic anemia, 02/2024 iron studies done in the office c/w AOCD
AF on warfarin
Plan
Plan
f/u CT head, spine
pain management, consider OP palliative radiation
OP follow up upon discharge
Patient History
History of Present Illness
63 yo F with metastatic recurrent breast cancer with bone and bone marrow involvement presented to ER with headache and nausea. Her symptoms onset was approximately 1 week ago. Her headache is in her upper neck, posterior skull and radiates to
her right ear. She takes gabapentin and percocet prn cancer related pain, however, did not get relief with home strategies which prompted her to seek further evaluation in the ER. CT head and C spine done in the ED is pending. WBC 4.6, Hgb
8.1g/dL, platelet 320,000, nml renal function, Tbili 0.5, AST 44, ALT 19, Alk phos 135. She has been admitted for pain management and started on IV narcotics.
Christina is under the care of Dr. Bartholomew for her metastatic breast cancer. She is receiving palliative Taxol and retacrit. Her last PET/CT showed extensive stable osseous metastatic disease throughout her skeleton including spine, bilateral
proximal humeri, clavicles, scapula, sternum, ribs, sacrum, pelvis, and bilateral femurs. Her Ca27.29 has been trending up since January 2024 from 99->144.7 on 03/07/2024. She has been off Xgeva for approximately 18months for dental work. Her
course has been c/b hypercalcemia of malignancy and pathological fracture of the left clavicle, and pancytopenia. She is on warfarin for chronic atrial fibrillation.
Clinically, she denies fever, chills, cough, sob, griffith, chest pain, palpations, n/v/d/c or abdominal pain.
Afebrile, no hypoxia or hypotension.
Past-Medical/Surgical History
Past Medical History
Asthma
Arthritis
Osteopenia
Calcific tendonitis
pulmonary emboli
atrial fibrillation
Past Surgical History
Right knee ACL reconstruction
MitraClip mitral valve repair/TAVR
R lumpectomy
R ACW port placement
D&C
T&A
Social History
Never Smoker Denies any prior alcohol use. , retired
Family History
No family history of cancer.
Patient Medication
�Medication �Instructions �Recorded �Confirmed �Last Taken �Type
albuterol sulfate 90 mcg/actuation 1 puff inhalation R Q4HPRN PRN 10/26/18 03/11/24 04/26/23 History
aerosol inhaler wheeze
diphenoxylate-atropine 2.5 1 tab PO DAILY PRN diarrhea 03/16/23 03/11/24 04/26/23 History
mg-0.025 mg tablet (Lomotil)
ondansetron HCl 8 mg tablet 8 mg PO Q8H PRN nausea 03/16/23 03/11/24 03/09/23 History
prochlorperazine maleate 10 mg 10 mg PO Q6H PRN nausea 03/16/23 03/11/24 Unknown History
tablet (Compazine)
Coumadin 5 mg PO DAILY 06/07/23 03/11/24 09/30/23 History
10 mg
gabapentin 100 mg capsule 300 mg PO HS 03/11/24 03/11/24 Unknown History
oxycodone-acetaminophen 325 PO DAILY PRN pain 03/11/24 Unknown History
Active Medications
Generic Name Dose Route Start Last Admin
Trade Name Freq PRN Reason Stop Dose Admin
Acetaminophen 650 mg 03/11/24 07:24
Acetaminophen 325 Mg Tablet PO 04/08/24 07:23
Q4HPRN PRN
Mild Pain / Temp > 101
Gabapentin 300 mg 03/11/24 22:00
Gabapentin 100 Mg Capsule PO 04/08/24 21:59
HS LAURA
Morphine Sulfate 2 mg 03/11/24 07:24 03/11/24 07:37
Morphine 2 Mg/Ml Syringe IV 03/25/24 07:23 2 mg
Q4HPRN PRN Administration
Severe Pain
Ondansetron HCl 4 mg 03/11/24 07:24
Ondansetron 4 Mg/2 Ml Vial IV 04/08/24 07:23
Q6HPRN PRN
nausea and vomiting
Oxycodone HCl 10 mg 03/11/24 07:24
Oxycodone 10 Mg Regular Release Tablet PO 03/25/24 07:23
Q4HPRN PRN
Moderate Pain
Prochlorperazine Maleate 10 mg 03/11/24 07:24
Prochlorperazine 10 Mg Tablet PO 04/08/24 07:23
Q6H PRN
nausea
Warfarin Sodium 5 mg 03/11/24 18:00
Warfarin 5 Mg Tablet PO 03/16/24 17:59
QPM LAURA
Review of Systems
-
Review of systems notable for HPI, otherwise negative
Physical Exam
-
HEENT: Moist Mucous Membranes; Negative Jaundice
Cardiology: Other (irreg, irreg)
Pulmonary: Clear
GI: Soft
Extremities: Pulses Present; Negative Edema
Neurology: Non Focal, No Lateralizing Symptoms and No Word Finding Difficulty
Skin: Warm
Psych: Calm
Labs
Lab Results
WBC 4.6 10^3/uL (4.8-10.8) L 03/11/24 02:32
RBC 2.82 10^6/uL (4.20-5.40) L 03/11/24 02:32
Hgb 8.1 g/dL (12.0-16.0) L 03/11/24 02:32
Hct 25.0 % (37.0-47.0) L 03/11/24 02:32
MCV 88.7 fL (81.0-99.0) 03/11/24 02:32
MCH 28.7 pg (27.0-31.0) 03/11/24 02:32
MCHC 32.4 g/dL (33.0-37.0) L 03/11/24 02:32
RDW 16.1 % (11.5-14.5) H 03/11/24 02:32
Plt Count 320 10^3/uL (130-400) 03/11/24 02:32
MPV 10.1 fL (7.4-10.4) 03/11/24 02:32
Abs Immat Gran (auto) 0.0 10^3/uL (0-0.05) 03/11/24 02:32
Absolute Neuts (auto) 3.8 10^3/uL (1.4-6.5) 03/11/24 02:32
Absolute Lymphs (auto) 0.7 10^3/uL (1.2-3.4) L 03/11/24 02:32
Absolute Monos (auto) 0.1 10^3/uL (0.1-0.6) 03/11/24 02:32
Absolute Eos (auto) 0.0 10^3/uL (0-0.7) 03/11/24 02:32
Absolute Basos (auto) 0.0 10^3/uL (0-0.2) 03/11/24 02:32
Immature Gran % 0.4 % (0-0.5) 03/11/24 02:32
Neutrophils % 82.4 % (42.2-75.2) H 03/11/24 02:32
Lymphocytes % 15.7 % (20.5-51.1) L 03/11/24 02:32
Monocytes % 1.3 % (1.7-9.3) L 03/11/24 02:32
Eosinophils % 0.0 % (0-6) 03/11/24 02:32
Basophils % 0.2 % (0-2) 03/11/24 02:32
Creatinine 0.5 mg/dL (0.6-1.0) L 03/11/24 02:32
Vital Signs
Vital Signs
Temp Pulse Resp BP Pulse Ox
98.6 F 72 18 117/70 98
03/10/24 22:50 03/11/24 05:06 03/11/24 06:00 03/11/24 05:06 03/11/24 05:06

Documented by User: Virginia Bartholomew MD 03/11/24 14:13
Impression
Impression
Breast cancer met to bone marrow, skeletal bone, continuing on Taxol.
Previously treated with Trodelvy, Enhertu, Faslodex, scholarly, Ibrance, Xeloda.
Initial response to Taxol with overall stability on 01/12/2024 PET scan
Recently with rising CA 27-29 and recurrent/progressive anemia concerning for disease progression.
Recently with neck pain, thought by patient to be musculoskeletal, until acute exacerbation prompting hospitalization.
Atrial fibrillation on warfarin.
History of dental issues with Xgeva on hold for the last 2 years.
PIK3CA mutation
Cancer related pain
Plan
Plan
Case discussed informally with Neurosurgery, stated no role for intervention from their standpoint.
MRI C-spine.
Consult orthopedics due to concern for C-spine instability.
Will D/C Taxol as outpatient and initiate [id number] therapy with capivastertib.
Pain controlled on Percocet.
Transfuse PRN Hbg<7.5
Thank you for consult, will follow along with you.
Physical Exam
-
General: Well Developed, Well Nourished, No Apparent Distress and Other (cervical collar in place)
[2024-03-11 08:00] VITALS: BP 138/74
--- NOTE | 2024-03-11 08:23 | W.PN.HOSP.TC ---
Addendum entered and electronically signed by Hamzah Hubbard MD 03/11/24 18:42:
Patient has now clearly confirmed that her Code Status is 'DNR,' but not 'Full Code.'
Original Note:
Today's Communication/Plan
-
Pain control
Follow-up MRI C-Spine
Case discussed with Dr. Sweeney (spine surgeon) -- see below
Assessment / Plan
Assessment / Plan
Physical Exam
General: Not in acute distress
HEENT: Moist mucous membranes. Cervical collar in place.
Respiratory: Clear to Auscultation Bilaterally
Cardiac: S1/S2 and Regular Rhythm
GI: Soft, Non Tender, Non Distended and Normal Bowel Sounds
Musculoskeletal: No Cyanosis and No Edema
Neuro: AAO x 3
Assessment/Plan
Patient is a 63 y/o female with past medical history significant for breast cancer with metastases to the bone who presented to complaining of one week of new posterior headache and neck pain.
Known metastatic breast cancer to bone (including spine), presentation with headache and neck pain
Symptomatic Cervical / Occipital Lytic Lesions
- CT done in the ED with multiple cervical / skull base bony lesions - the most prominent of which are R occipital condyle and R C2 body.
- Prior PET-CT scans have demonstrated wide-spread bony metastases - including throughout the spine.
- Clearly these are at the least newly symptomatic lesions.
- Collar placed in the ED.
- Supportive care / pain control / etc.
- Oncology evaluation for additional recommendations.
- Would likely benefit from RadOnc eval.
- Hem/onc discussed patient's case informally with Neurosurgery, who stated that there is no role for intervention from their standpoint.
- Check MRI C-Spine
- Discuss with orthopedics due to concern for C-spine instability -- case also discussed with Dr. Sherif Sweeney who said he will take a look at the patient's imaging when he gets back
Anemia of Chronic Disease
- Hgb near known baseline.
- No noted acute blood loss.
- Follow H&H for any changes.
- Transfuse PRN Hbg<7.5
History of PE
DVT Prophylaxis
- Continue Coumadin.
- Follow INR daily and adjust dose as needed.
DVT Prophylaxis: On Coumadin
Code Status: Full Code
Anticipated Discharge: > 48 hours
Subjective/Interval History
-
Date of Service: March 11, 2024
Patient was seen and examined. She reported pain is somewhat better, denied any numbness or tingling in her arms or legs.
Objective Data
-
Labs:
Laboratory Results
03/11/24
02:32
WBC 4.6 L
Hgb 8.1 L
Hct 25.0 L
Plt Count 320
Sodium 139
Potassium 3.9
Chloride 105
Carbon Dioxide 24
BUN 17
Creatinine 0.5 L
Glucose 115 H
Calcium 9.2
Total Bilirubin 0.5
AST 44 H
ALT 19
Alkaline Phosphatase 135 H
Vital Signs:
Vital Signs
Temp Pulse Resp BP Pulse Ox
98.6 F 72 18 117/70 98
03/10/24 22:50 03/11/24 05:06 03/11/24 06:00 03/11/24 05:06 03/11/24 05:06
[2024-03-11 08:52] VITALS: BMI 23.2
[2024-03-11] MEDS: ROXICODONE 10 MG PO ×3 (09:42→18:12)
[2024-03-11] MEDS: TYLENOL 650 MG PO ×3 (09:42→18:12)
[2024-03-11] MEDS: PROTONIX 40 MG PO (11:11)
[2024-03-11] MEDS: DECADRON 4 MG PO ×2 (11:11→20:11)
[2024-03-11 15:00] VITALS: BP 137/81
--- NOTE | 2024-03-11 15:01 | CM ---
Addendum entered by Rebecca Liu 03/11/24 16:43:
Case management consult completed.
AD given
Original Note:
Patient seen at bedside. IA completed
Dx: Cervical/occipital lytic lesion
PMH: breast cancer with metastases to bone
Lives in a 2 story home with son, 0 steps to enter, flight to second floor
PLOF: Independent, states does not use assistive device, drives,
DME: [facility]
denies SNF has had [facility] in past
Await PT/OT evals
PCP: Rossy Gamble
Pharmacy: [facility]
Plan: Await PT/OT evals
--- NOTE | 2024-03-11 15:18 | W.PN.UPDATE ---
Update Note
Progress Note Update
Dr. Sherif Sweeney to help decide whether safe to take off the cervical collar and whether there are any restrictions on patient's activity (concern for spinal instability).
[2024-03-11] MEDS: DILAUDID 0.25 MG IV ×2 (15:32→21:33)
[2024-03-11] MEDS: COUMADIN 5 MG PO (18:05)
[2024-03-11 20:04] LABS: INR 2.06; PT 23.3 Sec (11.4-14.6)
[2024-03-11] MEDS: NEURONTIN 300 MG PO (20:13)
[2024-03-11 23:30] VITALS: BP 129/73
[2024-03-12] VITALS (7 sets, daily range): BP systolic 105–128; BP diastolic 68–80; PULSE 82; O2SAT 99
--- NOTE | 2024-03-12 07:34 | W.PN.ONC2 ---
Today's Communication / Plan
-
follow up spine, Dr. Sweeney, consult
pain management
Impression
Impression
MRI C spine with 17 mm lesion at C2, 8 mm lesion at C6, and 22 mm lesion at T3 -wearing C collar, ortho consult pending
Breast cancer met to bone marrow, skeletal bone, continuing on Taxol.
Previously treated with Trodelvy, Enhertu, Faslodex, scholarly, Ibrance, Xeloda.
Initial response to Taxol with overall stability on 01/12/2024 PET scan
Recently with rising CA 27-29 and recurrent/progressive anemia concerning for disease progression.
Recently with neck pain, thought by patient to be musculoskeletal, until acute exacerbation prompting hospitalization.
Atrial fibrillation on warfarin.
History of dental issues with Xgeva on hold for the last 2 years.
PIK3CA mutation
Cancer related pain
Plan
Plan
Case discussed informally with Neurosurgery 03/10, stated no role for intervention from their standpoint.
f/u orthopedics due to concern for C-spine instability.
Will D/C Taxol as outpatient and initiate [id number] therapy with capivastertib.
Pain controlled on Percocet.
Transfuse PRN Hbg<7.5
Subjective/Objective
Subjective
Vital Signs:
Vital Signs
Temp Pulse Resp BP Pulse Ox
97.9 F 72 14 128/73 95
03/12/24 03:30 03/12/24 03:30 03/12/24 03:30 03/12/24 03:30 03/12/24 03:30
Lab Results:
Laboratory Data
WBC 4.6 10^3/uL (4.8-10.8) L 03/11/24 02:32
Hgb 8.1 g/dL (12.0-16.0) L 03/11/24 02:32
Plt Count 320 10^3/uL (130-400) 03/11/24 02:32
PT 23.3 Sec (11.4-14.6) H 03/11/24 19:47
INR 2.06 03/11/24 19:47
eGFR > 60.00 03/11/24 02:32
Orders
Orders
Orders From Last 24 Hours
03/11/24 09:54
MR Cervical Spine Without & W Routine
03/11/24 10:00
Dexamethasone [Decadron] 4 mg PO Q12
Pantoprazole [Protonix] 40 mg PO DAILY
--- NOTE | 2024-03-12 07:40 | W.PN.HOSP.TC ---
Addendum entered and electronically signed by Hamzah Hubbard MD 03/12/24 14:04:
Cardiology consulted given patient's significant valvular heart disease as well as history of HFpEF in the setting of episodic tachycardia.
Original Note:
Today's Communication/Plan
-
Palpitations
-HR up to 160s with ambulation in the room
-EKG with NSR with HR in the 80s, but previous EKG this hospitalization showed PVCs
-Check troponins
-Check echo
Assessment / Plan
Assessment / Plan
Physical Exam
General: Not in acute distress
HEENT: Moist mucous membranes. Cervical collar in place.
Respiratory: Clear to Auscultation Bilaterally
Cardiac: S1/S2 and Regular Rhythm
GI: Soft, Non Tender, Non Distended and Normal Bowel Sounds
Musculoskeletal: No Cyanosis and No Edema
Neuro: AAO x 3
Assessment/Plan
Patient is a 63 y/o female with past medical history significant for breast cancer with metastases to the bone who presented to complaining of one week of new posterior headache and neck pain.
Known metastatic breast cancer to bone (including spine), presentation with headache and neck pain
Symptomatic Cervical / Occipital Lytic Lesions
- CT done in the ED with multiple cervical / skull base bony lesions - the most prominent of which are R occipital condyle and R C2 body.
- Prior PET-CT scans have demonstrated wide-spread bony metastases - including throughout the spine.
- Clearly these are at the least newly symptomatic lesions.
- Collar placed in the ED.
- Supportive care / pain control / etc.
- Oncology evaluation for additional recommendations.
- Would likely benefit from RadOnc eval.
- Hem/onc discussed patient's case informally with Neurosurgery, who stated that there is no role for intervention from their standpoint.
- Check MRI C-Spine
- Discussed case with oncologist and international specialist Dr. Sherif Sweeney, based on patient's C-Spine imaging, he said patient had lytic lesions in her spine, he also mentioned that patient's spine does not look unstable, only role for
surgery would be if the patient got fractures and got cord compression, nothing to do prophylactically, patient should probably wear a soft collar though, should see international specialist outpatient, needs outpatient follow-up with
Dr. Sweeney's team
Palpitations
-HR up to 160s with ambulation in the room
-EKG with NSR with HR in the 80s, but previous EKG this hospitalization showed PVCs
-Check troponins
-Check echo
Anemia of Chronic Disease
- Hgb near known baseline.
- No noted acute blood loss.
- Follow H&H for any changes.
- Transfuse PRN Hbg<7.5
History of PE
DVT Prophylaxis
- Continue Coumadin.
- Follow INR daily and adjust dose as needed.
DVT Prophylaxis: On Coumadin
Code Status: Full Code
Anticipated Discharge: Within 24 hours
Subjective/Interval History
-
Date of Service: March 12, 2024
Patient was seen and examined. Her pain was controlled this morning, later in the morning she had palpitations with heart rate up to the 160s.
Objective Data
-
Labs:
Laboratory Results
03/11/24 03/12/24
19:47 06:00
WBC Pending
Hgb Pending
Hct Pending
Plt Count Pending
PT 23.3 H Pending
INR 2.06 Pending
Sodium Pending
Potassium Pending
Chloride Pending
Carbon Dioxide Pending
BUN Pending
Creatinine Pending
Glucose Pending
Calcium Pending
Vital Signs:
Vital Signs
Temp Pulse Resp BP Pulse Ox
97.9 F 72 14 128/73 95
03/12/24 03:30 03/12/24 03:30 03/12/24 03:30 03/12/24 03:30 03/12/24 03:30
[2024-03-12 08:27] LABS: INR 2.21; PT 24.6 Sec (11.4-14.6)
[2024-03-12 08:41] LABS: Hematocrit 32.5 % (37.0-47.0); Hemoglobin 10.1 g/dL (12.0-16.0); Mean Corp Hgb Conc. 31.1 g/dL (33.0-37.0); Mean Corpuscular Hgb 28.5 pg (27.0-31.0); Mean Corpuscular Volume 91.8 fL (81.0-99.0); Platelet Count 378 10^3/uL (130-400); Red Blood Cell Count 3.54 10^6/uL (4.20-5.40); Red Cell Dist. Width 16.9 % (11.5-14.5); White Blood Cell Count 7.4 10^3/uL (4.8-10.8)
[2024-03-12] MEDS: ROXICODONE 10 MG PO ×3 (08:47→21:01)
[2024-03-12] MEDS: TYLENOL 650 MG PO ×2 (08:47→16:42)
[2024-03-12] MEDS: PROTONIX 40 MG PO (08:47)
[2024-03-12] MEDS: DECADRON 4 MG PO ×2 (08:47→20:57)
[2024-03-12 09:52] LABS: Blood Urea Nitrogen 17 mg/dl (7-17); Calcium 9.8 mg/dl (8.4-10.2); Carbon Dioxide 25 mmol/L (22-30); Chloride 102 mmol/L (98-107); Estimated Creatinine Clearance 81 ml/min; Glucose 114 mg/dl (70-99); Potassium 4.5 mmol/L (3.5-5.1); Sodium 138 mmol/L (135-145); eGFR > 60.00
--- NOTE | 2024-03-12 10:45 | PTCARENOTE ---
Patient tachy in to 160s with ambulation in room. Patient reports 'feeling it', palpitations and feeling weak. Patient reports feeling like occasionally at home. EKG completed. MD notified. Discharge on hold.
[2024-03-12 12:13] LABS: Troponin I < 0.012 ng/ml
[2024-03-12] MEDS: COUMADIN 5 MG PO (16:41)
--- NOTE | 2024-03-12 19:29 | CON.CAR ---
Consultation
Consultation Request
Date/Time Consultation Requested: 03/12/24
Date/Time Consultation Performed: 03/12/24
Requesting Provider: Dr. Hubbard
Performing Provider: Dr. Vogt
Reason for Consultation: Tachycardia
Medical History
-
Chief Complaint: Severe neck pain
History of Present Illness:
I had the pleasure to meet your patient, Christina Drake for evaluation of tachycardia. Christina is known to [facility] and follows with my colleague Dr. Jolene Miranda. She has a past medical history of recurrent metastatic breast cancer with diffuse bone
and bone marrow involvement, pulmonary embolism in 2019 on Coumadin anticoagulation with severe degenerative mitral valve prolapse/flail leaflet status post transcatheter [id number]-du-dydn repair/MitraClip x 2 on February 11, 2022. She denies a history
of atrial fibrillation. Her most recent echocardiogram October 18, 2023 showed preserved biventricular systolic function with an LV ejection fraction 63% and Melissa epic GLS -17.8%. Her mitral valve repair had a mean gradient of 4 mmHg with mild to
moderate mitral regurgitation. Aortic valve is trileaflet and structurally and functionally normal without significant stenosis or regurgitation and she had mild tricuspid regurgitation with no pulmonary artery pressures 25-30 mmHg and no
pericardial effusion. Over the last week she has noted worsening neck pain however she developed acute severe neck pain while putting food back in the refrigerator from the holidays which prompted her ER visit on Wednesday. Her pain is much better
controlled but she is still in the soft neck brace. She denies palpitations or chest pain or pressure. No shortness of breath. No headaches or focal weakness.
Past medical history:
-Severe mitral regurgitation- s/p Transseptal puncture w/ MELLO and fluoroscopic guidance followed by Placement of XTW Mitraclip at A2/P2 and an additional NT Mitraclip lateral to initial
w/ further significant reduction in MR on 02/11/22
-hx PE 11/2018 - on Xarelto preop
- relapsed breast CA, now metastatic to bone and bone marrow - s/p XRT/chemo
- iron-deficiency anemia
- osteopenia/ OA/ DJD
- cervical dysplasia
- s/p lumpectomy/ lymph node resection 2004 and 2018
Past Medical History
Past Medical History: Other (See HPI)
Past Surgical History: Other (Right lumpectomy with lymph node excision 2004, chemotherapy port insertion and removal, rib biopsy, D&C, mitral clip, tonsillectomy, right knee ACL)
Social History
Tobacco: Non-Smoker
Alcohol: None
Drug: None
Personal:
Living: With Family
Employment: Retired
Family History
Family History: Reviewed & Not Pertinent
Allergies / Home Medications
Allergy/AdvReac Type Severity Reaction Status Date / Time
No Known Allergies Allergy Verified 03/11/24 15:48
�Medication �Instructions �Recorded �Confirmed �Type
albuterol sulfate 90 mcg/actuation 1 puff inhalation R Q4HPRN PRN 10/26/18 03/11/24 History
aerosol inhaler wheeze
diphenoxylate-atropine 2.5 1 tab PO DAILY PRN diarrhea 03/16/23 03/11/24 History
mg-0.025 mg tablet (Lomotil)
ondansetron HCl 8 mg tablet 8 mg PO Q8H PRN nausea 03/16/23 03/11/24 History
prochlorperazine maleate 10 mg 10 mg PO Q6H PRN nausea 03/16/23 03/11/24 History
tablet (Compazine)
Coumadin 5 mg PO DAILY 06/07/23 03/11/24 History
gabapentin 100 mg capsule 300 mg PO HS 03/11/24 03/11/24 History
oxycodone-acetaminophen 1 tab PO DAILY PRN pain 03/11/24 03/11/24 History
Review of Systems
-
History Source: Patient
All other systems: Negative unless noted
Constitutional: No Symptoms
EENT: No Symptoms
Respiratory: No Symptoms
Cardiac: No Symptoms
Musculoskeletal: Joint Pain, Muscle Pain and Other (Neck pain)
Hematologic/Lymphatic: Bleeding (No bleeding)
Physical Exam
Vital Signs
Temp Pulse Resp BP Pulse Ox
98.0 F 86 18 113/72 99
03/12/24 15:53 03/12/24 15:53 03/12/24 15:53 03/12/24 15:53 03/12/24 15:53
Lab Results
03/12/24 07:57
03/12/24 07:57
Troponin I < 0.012 ng/ml 03/12/24 11:37
Physical Exam
General: Other (63-year-old female who appears chronically ill and soft neck brace. NAD. On room air)
HEENT: Normocephalic, Anicteric and Moist Mucous Membranes
Respiratory: Clear
Cardiac: S1/S2 and Regular Rhythm; Negative Murmur, Rub, Peripheral Edema or Calf Tenderness
GI: Soft, Non Tender, Non Distended and Normal Bowel Sounds
Skin: Warm; Negative Rash
Neuro: AO x 3 and Nonfocal/Grossly Intact
Psych: Calm
Impression / Plan
-
General Assistant: Dr. Jolene Miranda
Impression/Plan:
Tachycardia, largely asymptomatic.
-On telemetry she is having periods of sinus tachycardia and what looks like bouts of paroxysmal atrial tachycardia.
-2D echocardiogram in October with normal mitral valve function status postrepair and no other significant valve disease with normal biventricular systolic function. Will hold off repeating echocardiogram at this time
-Pain control
-Check TSH
-Will add low-dose Lopressor 12.5 mg twice daily with hold parameters
Acute on chronic cervical pain
-CT done in the ED noting multiple cervical/skull base bone lesions with prior PET/CT scans demonstrating diffuse bone metastasis.
-Oncology Consulted who informally discussed case with neurosurgery.
-No plans for surgical intervention.
-Pain control/supportive care.
History of pulmonary embolism in 2019 on warfarin therapy.
-INR in range
S/P successful BRUNO (One XTW MitraClip to the medial aspect of A2/P2, one XT MitraClip to the lateral aspect of A2/P2) February 20, 2022
-Noted
Data Reviewed
-
EKG: Report Reviewed by me
Radiology: Report Reviewed by me
Medical Tests (Nuc Med, Echo etc): Report Reviewed by me
Labs: Labs Reviewed by me
Old Records: Reviewed
[2024-03-12] MEDS: NEURONTIN 300 MG PO (20:57)
[2024-03-12] MEDS: LOPRESSOR PO (21:45)
[2024-03-13 00:10] LABS: Troponin I < 0.012 ng/ml
[2024-03-13] MEDS: ROXICODONE 10 MG PO ×4 (03:31→20:31)
[2024-03-13 03:49] VITALS: BP 122/69
[2024-03-13 05:45] LABS: INR 3.07; PT 31.5 Sec (11.4-14.6)
[2024-03-13 05:56] LABS: Troponin I < 0.012 ng/ml
[2024-03-13 07:00] VITALS: BP 126/66
[2024-03-13] MEDS: DECADRON 4 MG PO ×3 (08:33→20:32)
[2024-03-13] MEDS: PROTONIX 40 MG PO (08:33)
[2024-03-13] MEDS: LOPRESSOR 12.5 MG PO (08:42)
--- NOTE | 2024-03-13 10:21 | CM ---
Chart reviewed and plan is to home with son when stable, patient is independent with adl's and ambulation.
Plan: Home with family no needs.
--- NOTE | 2024-03-13 10:43 | W.PN.HOSP.TC ---
Today's Communication/Plan
-
STAT MRI brain with and without contrast
Decadron for brain metastases
Assessment / Plan
Assessment / Plan
Physical Exam
General: Not in acute distress
HEENT: Moist mucous membranes. Cervical collar in place.
Respiratory: Clear to Auscultation Bilaterally
Cardiac: S1/S2 and Regular Rhythm
GI: Soft, Non Tender, Non Distended and Normal Bowel Sounds
Musculoskeletal: No Cyanosis and No Edema
Neuro: AAO x 3. Tongue Deviation, somewhat slurred speech, otherwise PERRL, EOMI, cranial nerves appear grossly intact, and strength and sensation grossly intact bilaterally
Assessment/Plan
Patient is a 63 y/o female with past medical history significant for breast cancer with metastases to the bone who presented to complaining of one week of new posterior headache and neck pain.
Known metastatic breast cancer to bone (including spine), presentation with headache and neck pain
Symptomatic Cervical / Occipital Lytic Lesions
New neurological symptoms (dysphagia, tongue deviation, headache, slurred speech) on 03/13/24
- CT done in the ED with multiple cervical / skull base bony lesions - the most prominent of which are R occipital condyle and R C2 body.
- Prior PET-CT scans have demonstrated wide-spread bony metastases - including throughout the spine.
- Clearly these are at the least newly symptomatic lesions.
- Collar placed in the ED.
- Supportive care / pain control / etc.
- Oncology evaluation for additional recommendations.
- Brain MRI ordered STAT on 03/13/24 as per request of radiation oncologist Dr. Jocelyn Lara, they mentioned that most metastases are in posterior fossa - patient will need
whole brain radiation treatment; does not look like a role for surgery -- they mentioned that if patient is stable for discharge in 1-2 days, can start treatment here as outpatient,
but if patient requires a longer hospitalization, they would recommend transfer to [facility] to start radiation treatment as inpatient
- Although some lesions on Brain MRI in the cerebellum appear to look like they have blood in them, per [place] Text conversation with neurosurgeon, okay to continue Coumadin
anticoagulation
- Per hem-onc, neurology consult not needed at this time
- Discussed case with oncologist and denture contour wire specialist Dr. Sherif Sweeney, based on patient's C-Spine imaging, he said patient had lytic lesions in her spine, he also mentioned that patient's spine does not
look unstable, only role for surgery would be if the patient got fractures and got cord compression, nothing to do prophylactically, patient should probably wear a soft collar though, should see spine
specialist outpatient, needs outpatient follow-up with Dr. Sweeney's team
Palpitations
-HR up to 160s with ambulation in the room on 03/12/24
-EKG with NSR with HR in the 80s, but previous EKG this hospitalization showed PVCs
-Troponins negative
-Continue Toprol XL 12.5 mg daily as per cardiology
-Per cardiology, outpatient follow-up with Dr. Jolene Miranda
Anemia of Chronic Disease
- Hgb near known baseline.
- No noted acute blood loss.
- Follow H&H for any changes.
- Transfuse PRN Hbg<7.5
History of PE
DVT Prophylaxis
- Continue Coumadin.
- Follow INR daily and adjust dose as needed.
DVT Prophylaxis: On Coumadin
Code Status: Full Code
Total time spent today in caring for the patient, including chart review, seeing and examining the patient, extensively speaking with consultants/specialists, and documentation, was 75 minutes.
Anticipated Discharge: Today
Subjective/Interval History
-
Date of Service: March 13, 2024
Patient was seen and examined. She reported headache, some slurred speech, some difficulty swallowing, and tongue felt funny.
Objective Data
-
Labs:
Laboratory Results
03/13/24 03/13/24
05:17 07:27
WBC Pending
Hgb Pending
Hct Pending
Plt Count Pending
PT 31.5 H
INR 3.07
Sodium Pending
Potassium Pending
Chloride Pending
Carbon Dioxide Pending
BUN Pending
Creatinine Pending
Glucose Pending
Calcium Pending
Vital Signs:
Vital Signs
Temp Pulse Resp BP Pulse Ox
98.3 F 81 19 126/66 100
03/13/24 07:00 03/13/24 07:00 03/13/24 07:00 03/13/24 07:00 03/13/24 07:00
I&O
03/12/24 03/13/24 03/14/24
06:59 06:59 06:59
Intake Total 2079
Balance 2079
--- NOTE | 2024-03-13 10:44 | W.PN.CARDCBS ---
Today's Communication / Plan
-
Transition to Toprol XL 12.5 mg daily
Please recall if needed
Impression / Plan
-
.
Drop Shipment Clerk: Dr. Jolene Miranda
Impression/Plan:
Tachycardia, largely asymptomatic.
Tele appeared to be sinus tachycardia, now improved with Lopressor 12.5 mg BID, which was started.
2D echocardiogram in October 2023 with normal mitral valve function status postrepair and no other significant valve disease with normal biventricular systolic function.
No need to repeat
Cont pain control
Transition to Toprol XL 12.5 mg daily which is also pt preference.
Acute on chronic cervical pain
-CT done in the ED noting multiple cervical/skull base bone lesions with prior PET/CT scans demonstrating diffuse bone metastasis.
-Oncology Consulted who informally discussed case with neurosurgery.
-No plans for surgical intervention.
-Pain control/supportive care.
History of pulmonary embolism in 2019 on warfarin therapy.
S/P successful BRUNO (One XTW MitraClip to the medial aspect of A2/P2, one XT MitraClip to the lateral aspect of A2/P2) February 20, 2022
Stable from cardiac standpoint.
She already has outpt follow up
Please recall if needed.
Progress Note - Drop Shipment Clerk
Subjective
Date of Service: March 13, 2024
Pt seen and examined. No complaints. No chest pain or shortness of breath.
Objective
Labs:
Labs
Hgb 10.1 g/dL (12.0-16.0) L D 03/12/24 07:57
Hct 32.5 % (37.0-47.0) L 03/12/24 07:57
Plt Count 378 10^3/uL (130-400) 03/12/24 07:57
PT 31.5 Sec (11.4-14.6) H 03/13/24 05:17
INR 3.07 03/13/24 05:17
Sodium 138 mmol/L (135-145) 03/12/24 07:57
Potassium 4.5 mmol/L (3.5-5.1) 03/12/24 07:57
BUN 17 mg/dl (7-17) 03/12/24 07:57
Creatinine 0.5 mg/dL (0.6-1.0) L 03/12/24 07:57
Glucose 114 mg/dl (70-99) H 03/12/24 07:57
Troponins
03/12/24 03/12/24 03/12/24
11:37 17:15 23:24
Troponin I < 0.012 Cancelled < 0.012
03/13/24
05:17
Troponin I < 0.012
Vital Signs and I&O:
Vital Signs
Temp Pulse Resp BP Pulse Ox
98.3 F 81 19 126/66 100
03/13/24 07:00 03/13/24 07:00 03/13/24 07:00 03/13/24 07:00 03/13/24 07:00
Vital Signs
Temp Pulse Resp BP Pulse Ox
98.3 F 81 19 126/66 100
03/13/24 07:00 03/13/24 07:00 03/13/24 07:00 03/13/24 07:00 03/13/24 07:00
Intake & Output
03/11/24 03/12/24 03/13/24 03/14/24
06:59 06:59 06:59 06:59
Intake Total 2079
Balance 2079
Physical Exam
Physical Exam
General: No acute distress, AAOX3
Neck: Negative JVD
Heart: Regular, Negative S3 positive S1/S2, Negative S4, No murmur
Lungs: CTA b/l, negative wheezes/rales/rhonchi
Abd: Positive BS, NT/ND, neg rebound/rigidity/guarding
Ext: Negative cyanosis/clubbing/edema
Neuro: nonfocal
[2024-03-13 11:00] VITALS: BP 110/68
[2024-03-13 14:14] LABS: Blood Urea Nitrogen 27 mg/dl (7-17); Calcium 9.7 mg/dl (8.4-10.2); Carbon Dioxide 27 mmol/L (22-30); Chloride 99 mmol/L (98-107); Estimated Creatinine Clearance 81 ml/min; Glucose 138 mg/dl (70-99); Magnesium 1.6 mg/dl (1.6-2.3); Potassium 4.2 mmol/L (3.5-5.1); Sodium 134 mmol/L (135-145); eGFR > 60.00
[2024-03-13 14:17] LABS: Hematocrit 30.3 % (37.0-47.0); Hemoglobin 9.9 g/dL (12.0-16.0); Mean Corp Hgb Conc. 32.7 g/dL (33.0-37.0); Mean Corpuscular Hgb 29.6 pg (27.0-31.0); Mean Corpuscular Volume 90.4 fL (81.0-99.0); Mean Platelet Volume 10.5 fL (7.4-10.4); Platelet Count 344 10^3/uL (130-400); Red Blood Cell Count 3.35 10^6/uL (4.20-5.40); Red Cell Dist. Width 17.1 % (11.5-14.5); White Blood Cell Count 9.8 10^3/uL (4.8-10.8)
--- NOTE | 2024-03-13 14:51 | PN.CDI ---
CDI
- -
CDI:
Physician Documentation Request
Admit Date: 03/11/24 05:04
Dear Doctor Stevie,
03/12 hospitalist progress note states 'Cardiology consulted given patient's significant valvular heart disease as well as history of HFpEF in the setting of episodic tachycardia'
Heart failure is not mentioned in H&P, other progress notes or cardiology consult. It does not appear patient does not take diuretics as outpatient.
Please confirm diagnosis :
Chronic diastolic heart failure is valid diagnosis
Chronic heart failure is ruled out
Other
Use of terms such as suspected, likely, concern for, or probable (associated with a specific diagnosis that is being evaluated, monitored, or treated as if it exists) are acceptable and can be coded in the inpatient setting, when documented at the
time of discharge.
Thank you,
Teresita Conrad RN, BSN
CDI Specialist
tiger text
Please use your independent medical judgment in providing your response.
[2024-03-13 15:00] VITALS: BP 119/76
--- NOTE | 2024-03-13 15:05 | PTOTSP ---
Speech Therapy Evaluation:
Pt exhibits clinical signs of oropharyngeal dysphagia, likely acute in nature related to enhancing metastatic disease in posterior fossa including rabia and right/left cerebellar hemisphere. Additionally, CNE remarkable for lingual impairment
including reduced sensation, strength, and ROM on R side with tongue deviation on R. Pt with no s/sx of aspiration on evaluation, however remains at an increased risk of aspiration given the aforementioned areas.
Recommend:
1. Continue IDDSI Level 7 (regular) solids and thin liquids
2. Medications whole with thin liquids (pt preference)
3. General aspiration precautions
4. ST to follow at the acute care level - likely brief pending results of MRI
[2024-03-13] MEDS: COUMADIN 5 MG PO (17:12)
[2024-03-13] MEDS: TYLENOL 650 MG PO (17:51)
[2024-03-13 19:00] VITALS: BP 110/70
[2024-03-13] MEDS: NEURONTIN 300 MG PO (20:31)
--- NOTE | 2024-03-13 21:00 | W.PN.ONC2 ---
Today's Communication / Plan
-
Speech therapy consulted to eval c/o difficulty swallowing.
If cleared to eat and drink, pt could be D/C'd with plan to start whole brain radiation immediately.
Per Neurosurgery, okay to continue anticoagulation as long as brain mets do not appear hemorrhagic.
Impression
Impression
MRI C spine with 17 mm lesion at C2, 8 mm lesion at C6, and 22 mm lesion at T3 -wearing C collar
Brain metastases apparent in retrospect on the MRI C-spine.
Atrial fibrillation on warfarin.
History of dental issues with Xgeva on hold for the last 2 years.
PIK3CA mutation
Cancer related pain
Plan
Plan
Case d/w Hospitalist, Rad Onc, Neurology, Neurosurgery.
Upon Dr. Lara review of MRI C-spine, brain mets were noted.
Pt started on steroids.
Whole-brain radiation anticipated.
Thereafter, would start capivasertib with Faslodex.
Subjective/Objective
Chief Complaint
Heme/Onc follow up of met breast cancer
Subjective
When seen this morning, c/o MONZON that began last night and persisted this morning. She stated her tongue felt weird, she was having some difficulty swallowing and thought her speech was slurred.
Vital Signs:
Vital Signs
Temp Pulse Resp BP Pulse Ox
98.3 F 89 18 110/70 97
03/13/24 19:00 03/13/24 19:00 03/13/24 19:00 03/13/24 19:00 03/13/24 19:00
Lab Results:
Laboratory Data
WBC 9.8 10^3/uL (4.8-10.8) 03/13/24 13:41
Hgb 9.9 g/dL (12.0-16.0) L 03/13/24 13:41
Plt Count 344 10^3/uL (130-400) 03/13/24 13:41
PT 31.5 Sec (11.4-14.6) H 03/13/24 05:17
INR 3.07 03/13/24 05:17
eGFR > 60.00 03/13/24 13:41
Physical Exam
HEENT: Moist Mucous Membranes; No Jaundice
Cardiology: Normal Sinus Rhythm, S1 and S2
Pulmonary: Clear
GI: Soft
Extremities: No C/C/E
Neuro: Other (Speech mildly slurred, tongue deviation to R)
Review of Systems
Review of Systems
Constitutional: Denies Fever
Head: Denies Sore Throat
Respiratory: Denies Dyspnea or Cough
Cardiovascular: Denies Chest Pain or Palpitations
Gastrointestinal: Denies Nausea/Vomiting or Diarrhea
Neurological: Reports Headache
Orders
Orders
Orders From Last 24 Hours
03/13/24 12:36
Speech Therapy Eval & Treat Routine
[2024-03-13 23:00] VITALS: BP 108/68
[2024-03-14] MEDS: TYLENOL 650 MG PO ×2 (00:37→10:03)
[2024-03-14] MEDS: ROXICODONE 10 MG PO ×2 (00:37→15:49)
[2024-03-14] MEDS: DECADRON 4 MG PO ×3 (02:37→13:18)
[2024-03-14 03:00] VITALS: BP 115/68
[2024-03-14 05:25] LABS: INR 3.17; PT 32.3 Sec (11.4-14.6)
[2024-03-14 07:00] VITALS: BP 117/72
--- NOTE | 2024-03-14 08:11 | W.PN.HOSP.TC ---
Addendum entered and electronically signed by Hamzah Hubbard MD 03/15/24 11:33:
Chronic heart failure is unlikely
Original Note:
Today's Communication/Plan
-
Discharge today
Assessment / Plan
Assessment / Plan
Physical Exam
General: Not in acute distress
HEENT: Moist mucous membranes. Cervical collar in place.
Respiratory: Clear to Auscultation Bilaterally
Cardiac: S1/S2 and Regular Rhythm
GI: Soft, Non Tender, Non Distended and Normal Bowel Sounds
Musculoskeletal: No Cyanosis and No Edema
Neuro: AAO x 3. Tongue Deviation, somewhat slurred speech, otherwise PERRL, EOMI, cranial nerves appear grossly intact, and strength and sensation grossly intact bilaterally

MR Brain W/o & With Contrast (as per radiologist's report)
'IMPRESSION:
There are numerous infratentorial and supratentorial enhancing lesions some of which demonstrate associated mild surrounding edema consistent with intracranial metastasis. There are multiple small foci of intrinsic T1 hyperintensity within a few of
the cerebellar lesions consistent with small focus of intra-metastatic hemorrhage.
Soft tissue lesions within the right occipital condyle as well as within the C2 vertebral body consistent with osseous metastatic disease.'
Cervical Spine MRI (as per radiologist's report)
' Impression:
As on the prior studies, there are mixed blastic and lytic bone lesions throughout the cervical and upper thoracic vertebrae without associated epidural extension of disease. Lytic lesions which were previously FDG avid on PET scan include:
-17 mm lesion at C2
-8 mm lesion at C6
-22 mm lesion at T3
Additionally, there is evidence of enhancing metastatic disease in the posterior fossa including:
-8mm lesion in the anterior aspect of the right side of rabia
-10 mm lesion in the left lower aspect of the rabia
-10 mm lesion in the lower aspect of the left cerebellar hemisphere
-9 mm lesion in the upper aspect of the right cerebellar hemisphere
-8mm lesion in the lower aspect of the right cerebellar hemisphere
-7 mm lesion in the posterior inferior aspect of the right cerebellar hemisphere
-3 mm lesion in the posterior inferior aspect of the right cerebellar hemisphere'
CT Head Results (as per radiologist's report)
'IMPRESSION: No acute intracranial pathology.
Moderate periventricular small vessel seen disease.
Mild nonacute sinusitis.'
CT Cervical Spine Results (as per radiologist's report)
'IMPRESSION: No evidence of acute osseous injury.
Findings consistent with severe blastic and lytic osseous metastatic disease. Stable'
Chest X-Ray Results (as per radiologist's report)
'IMPRESSION:
1. Hypoaerated lungs without consolidation.
2. Widespread osteoblastic metastases as seen previously.'

Assessment/Plan
Patient is a 63 y/o female with past medical history significant for breast cancer with metastases to the bone who presented to complaining of one week of new posterior headache and neck pain.
Known metastatic breast cancer to bone (including spine), presentation with headache and neck pain
Symptomatic Cervical / Occipital Lytic Lesions
New neurological symptoms (dysphagia, tongue deviation, headache, slurred speech) on 03/13/24
- CT done in the ED with multiple cervical / skull base bony lesions - the most prominent of which are R occipital condyle and R C2 body.
- Prior PET-CT scans have demonstrated wide-spread bony metastases - including throughout the spine.
- Clearly these are at the least newly symptomatic lesions.
- Collar placed in the ED.
- Supportive care / pain control / etc.
- Oncology evaluation for additional recommendations.
- Brain MRI ordered STAT on 03/13/24 as per request of radiation oncologist Dr. Jocelyn Lara, they mentioned that most metastases are in posterior fossa - patient will need
whole brain radiation treatment; does not look like a role for surgery -- they mentioned that if patient is stable for discharge in 1-2 days, can start treatment here as outpatient,
but if patient requires a longer hospitalization, they would recommend transfer to [facility] to start radiation treatment as inpatient
- Will discharge patient today, and patient will receive outpatient treatment/radiation
- Dr. Jocelyn Lara: Radiation to start as soon as patient is discharged
- Per hem-onc, neurology consult not needed at this time
- Discussed case with oncologist and photo specialist Dr. Sherif Sweeney, based on patient's C-Spine imaging, he said patient had lytic lesions in her spine, he also mentioned that patient's spine does not
look unstable, only role for surgery would be if the patient got fractures and got cord compression, nothing to do prophylactically, patient should probably wear a soft collar though, should see spine
specialist outpatient, needs outpatient follow-up with Dr. Sweeney's team
Palpitations
-HR up to 160s with ambulation in the room on 03/12/24
-EKG with NSR with HR in the 80s, but previous EKG this hospitalization showed PVCs
-Troponins negative
-Continue Toprol XL 12.5 mg daily as per cardiology
-Per cardiology, outpatient follow-up with Dr. Jolene Miranda
Anemia of Chronic Disease
- Hgb near known baseline.
- No noted acute blood loss.
- Follow H&H for any changes.
- Transfuse PRN Hbg<7.5
History of PE
DVT Prophylaxis
- HOLD Coumadin.
- Neurosurgery regarding patient's Brain MRI: 'These are very small hemorrhages, if that. Over read. She can remain in Coumadin, if it�s still indicated for her 2019 PE' and okay to discharge patient today per neurosurgery
- Hem/Onc: stop Coumadin for now, after patient completes her whole brain radiation, then they plan to start prophylactic Eliquis, no need for any imaging studies to check for any clot burden at this time since patient asymptomatic with regards to
VTE
- Follow INR daily and adjust dose as needed.
DVT Prophylaxis: On Coumadin
Diet: Per Speech Therapist: Regular food and regular thin liquids as well as medications as tolerated. General aspiration precautions. Compensatory strategies: small bites, alternate bites/sips, liquid washes, tongue sweep, brush teeth often, eat
slowly.
Code Status: Full Code
More than 30 minutes spent in discharge including
Final examination of the patient
Summarizing hospital stay
Instructions for continuing care to all relevant caregivers
Preparation of discharge records, prescriptions, and referral forms
Total time spent (in minutes): 39
Anticipated Discharge: Today
Subjective/Interval History
-
Date of Service: March 14, 2024
Patient was seen and examined. She reported her tongue deviation felt a bit more than usual, denied any other new, significant symptoms or complaints.
Objective Data
-
Labs:
Laboratory Results
03/14/24
04:48
PT 32.3 H
INR 3.17
Vital Signs:
Vital Signs
Temp Pulse Resp BP Pulse Ox
98.1 F 77 18 115/68 98
03/14/24 03:00 03/14/24 03:00 03/14/24 03:00 03/14/24 03:00 03/14/24 03:00
I&O
03/13/24 03/14/24 03/15/24
06:59 06:59 06:59
Intake Total 2079 480 / 480 480 / 480
Balance 2079 / 2079 480 / 480 480 / 480
[2024-03-14] MEDS: TOPROL XL 12.5 MG PO (09:41)
[2024-03-14] MEDS: PROTONIX 40 MG PO (09:46)
--- NOTE | 2024-03-14 10:04 | CM ---
phlebotomy manager reviewed patient's chart and met with patient this am and patient reports that she is for possible discharge today, home no needs with son.
Plan; Home no needs.
--- NOTE | 2024-03-14 10:14 | PTOTSP ---
ST Re-Evaluation/Follow-Up
Pt currently presents with fairly functional oropharyngeal parameters for safe PO intake of all solids and liquids. Pt should continue to utilize compensatory strategies to minimize the chances of an aspiration event.
Recommendations:
- Continue with regular solids, thin liquids, meds as tolerated.
- General aspiration precautions.
- Compensatory strategies: small bites, alternate bites/sips, liquid washes, tongue sweep, brush teeth often, eat slowly.
- COMMERCIAL TELLER to sign off for dysphagia.
- COMMERCIAL TELLER to f/u to complete a speech and language evaluation.
[2024-03-14 11:00] VITALS: BP 98/64
--- NOTE | 2024-03-14 11:03 | W.PN.UPDATE ---
Update Note
Progress Note Update
Case discussed with multiple members of care team. With tiny hemorrhagic foci seen on brain MRI, will stop warfarin.
D/c pending, to start WBXRT FRANCINE.
With h/o PE in 2019 and active cancer, she's at risk or future clots, so Dr. Lackey will likely start DOAC after completion of radiation.
Outpatient onc f/u
[2024-03-14 14:11] VITALS: BP 109/72
== END 2024-03-14 17:25 | disposition home or self-care (01) | DRG 55 ==
LOC: 4 WEST ACU 05:04
PROVIDERS: ADMITTING PHYSICIAN Hospitalist; ATTENDING PHYSICIAN Hospitalist; CONSULT PHYSICIAN Internal Medicine Cardiovascular Disease; CONSULT PHYSICIAN Internal Medicine Hematology & Oncology; EMERGENCY PHYSICIAN Emergency Medicine; FAMILY PHYSICIAN Family Medicine
DX: C79.31 Secondary malignant neoplasm of brain (principal); C79.51 Secondary malignant neoplasm of bone; I47.19 Other supraventricular tachycardia; C79.52 Secondary malignant neoplasm of bone marrow; R51.9 Headache, unspecified; M54.2 Cervicalgia; M19.90 Unspecified osteoarthritis, unspecified site; M85.80 Other specified disorders of bone density and structure, unspecified site; G89.3 Neoplasm related pain (acute) (chronic); I34.1 Nonrheumatic mitral (valve) prolapse; D63.8 Anemia in other chronic diseases classified elsewhere; R13.10 Dysphagia, unspecified; I49.3 Ventricular premature depolarization; D50.9 Iron deficiency anemia, unspecified; J45.909 Unspecified asthma, uncomplicated; C50.919 Malignant neoplasm of unspecified site of unspecified female breast; Z66 Do not resuscitate; Z86.711 Personal history of pulmonary embolism; Z79.01 Long term (current) use of anticoagulants; Z92.3 Personal history of irradiation; Z92.21 Personal history of antineoplastic chemotherapy
CPT/HCPCS: 70450; 70553; 71046; 72125; 72156; 80048; 80053; 83735; 84484; 85025; 85027; 85610; 92526; 92610; 93005; 96374; 96375; 97163; 97167; 97530; 99284; A9575